=== PATIENT | female | born 1965 | race Asian ===

== ENCOUNTER 2020-09-13 07:39 | Inpatient (IN) | payer OTHER, SELFPAY ==
[2020-09-13] VITALS (22 sets, daily range): BP systolic 138–175; BP diastolic 68–93; PULSE 63–90; RESP 15–32; TEMP 36.4–37; O2SAT 85–99; BMI 24.7
--- NOTE | 2020-09-13 08:25 | ED.SOB ---
HPI - SOB/Dyspnea General Chief Complaint: Shortness of Breath/Dyspnea Stated Complaint: covid + [id number]/cough Time Seen by Provider: 09/13/20 08:15 Source: patient Mode of arrival: Ambulatory Limitations: no limitations History of Present Illness HPI Narrative: The patient presents with difficulty breathing. About 10 days ago she developed myalgia and arthralgia with headaches. She has no complaints of sore throat. She has no change in smell or taste. She denies fever. COVID-19 testing was positive 10 days ago. Over last 3-4 days she has developed cough and dyspnea. The dyspnea is escalating. She is a nonsmoker. She has no history of asthma or allergies. She has no cardiac disease. She has no peripheral edema. She does take Trulicity as well as metformin for diabetes. She has also medications for GERD. Her family member with her is also positive for COVID. They are uncertain of the exact source of exposure. Despite the complaints of dyspnea, she talks in full sentences during our interview. Related Data Home Medications Medication Instructions Recorded Confirmed metformin [Glucophage XR] 1,000 mg PO BID #0 12/11/11 09/13/20 CA PANTOTHENATE/FOLIC ACID/VIT 1 tab PO Q DAY #0 05/12/12 09/13/20 (MULTIVITAMIN) esomeprazole magnesium [Nexium] 20 mg PO QDAY PRN #0 09/13/16 09/13/20 pravastatin 20 mg PO HS #0 09/13/16 09/13/20 dulaglutide [Trulicity] 0.75 mg SUBCUT WEEKLY 09/13/20 09/13/20 dulaglutide [Trulicity] See Protocol SUBCUT WEEKLY 09/13/20 09/13/20 losartan 25 mg PO DAILY 09/13/20 09/13/20 prednisone 20 mg DAILY 09/13/20 09/13/20 Allergies Allergy/AdvReac Type Severity Reaction Status Date / Time ibuprofen [IBUPROFEN] Allergy Unknown Verified 09/13/20 14:54 prednisone [PREDNISONE] Allergy Unknown HIVES Verified 09/13/20 14:54 Review of Systems Constitutional Constitutional: Reports chills, Denies fever(s), Denies headache(s), Reports lethargy, Reports malaise and Denies weakness Comments: Generalized myalgia and arthralgia. Eyes Eyes: Denies change in vision ENT Ears, Nose, Mouth, and Throat: Denies change in voice, Denies dizziness, Denies headache(s), Denies neck pain and Denies sore throat Cardiovascular Cardiovascular: Denies chest pain Respiratory Respiratory: Denies chest congestion and Denies cough Gastrointestinal Gastrointestinal: Denies abdominal pain, Denies diarrhea, Denies nausea and Denies vomiting Genitourinary Genitourinary: Denies dysuria Genitourinary: Denies dysuria Musculoskeletal Musculoskeletal: Denies neck pain Comments: Generalized myalgia and arthralgia Integumentary/Breasts Skin/Breast: Denies pruritus, Denies erythema, Denies rash and Denies wounds Neurologic Neurologic: Denies confusion, Denies dizziness, Denies headache(s) and Denies weakness Psychiatric Psychiatric: Denies anxiety and Denies confusion Patient History Medical History (Updated 09/13/20 @ 18:50 by Bharat Pate MD) Chronic GERD Hyperlipidemia Hypertension Type 2 diabetes mellitus Surgical History (Updated 09/13/20 @ 17:43 by Viviana Best DO) History of hysterectomy No significant past surgical history Family History (Updated 09/13/20 @ 17:44 by Viviana Best DO) Mother Peptic ulcer Father Brain tumor Social History household members: spouse Smoking Status: Never smoker alcohol intake: never Smoking Status: Never smoker alcohol intake frequency: 0-2 drinks per day Substance Use Type: does not use Exam Initial Vital Signs Initial Vital Signs: Vital Signs Temperature 98.6 F 09/13/20 07:48 Pulse Rate 73 09/13/20 07:48 Respiratory Rate 18 09/13/20 07:48 Blood Pressure 169/87 H 09/13/20 07:48 Pulse Oximetry 91 09/13/20 07:48 Const General: cooperative and well developed Nutritional Appearance: well nourished HENMT Head: normocephalic and atraumatic Ears: TM's normal bilaterally Mouth: oral mucosae normal Eyes General: appearance normal, both eyes and all related structures Eyelids: eyelids normal Conjunctivae: conjunctivae normal Sclera: sclerae normal Pupils: PERRL EOM: EOM intact bilaterally Neck Neck: No lymphadenopathy and No JVD Resp Effort & Inspection: normal respiratory effort and able to speak in complete sentences Auscultation: rales bilaterally and wheezes lower bilaterally Cardio Rate: regular rate Rhythm: regular rhythm Heart Sounds: S1 normal, S2 normal, no click, no gallops, no murmurs and no rubs Pulses: normal peripheral pulses GI Inspection: non-distended Palpation: soft, no hepatosplenomegaly, No guarding, No pulsatile mass and No tender Auscultation: normal bowel sounds Back/Spine/Pelvis Back: No CVA tenderness Cervical Spine: No cervical ROM normal Thoracic/Lumbar Spine: thoracic and lumbar spine normal to inspection Skin General: no rashes or lesions noted, No jaundice and No petechiae Neuro General: patient alert, patient oriented x3, gait normal and no focal motor deficits Speech: speech normal Extrem General: normal to inspection, full ROM, no pedal edema and no calf tenderness Psych Mental Status: mental status grossly normal Course Course Course Narrative: The patient arrived with known COVID. She has tachypnea at rates greater than 30, O2 sats about 90% on room air. Back exam she has bilateral pneumonia, this was confirmed by chest x-ray. Amongst her lab values, she had elevated D-dimer. CT chest revealed bilateral infiltrates once again, there is no evidence of PE. She is given albuterol for the wheezes, difficulty breathing. Antivirals and Decadron were initiated for COVID-19. The situation was discussed with the hospitalist, Dr. Haskins. The patient is admitted for ongoing care. Orders Ordered: ED Orders 09/13/20 10:07 CT angio chest PE protocol Stat 09/13/20 10:09 Arterial Blood Gas Stat 09/13/20 10:33 Blood Culture Stat 09/13/20 12:40 Respiratory Panel (Film Array) Stat Acetaminophen (Acetaminophen 325 Mg Tablet) 650 mg PO Q6HR PRN PRN Reason: Fever/Mild Pain (1-3) Al Hydrox/Mg Hydrox/Simethicone (Mag Hydrox/Alum/Simeth 30 Ml Udc) 30 ml PO Q6HR PRN PRN Reason: Dyspepsia Albuterol (Albuterol Hfa Mdi 60 Puff/8 Gm Inhaler) 2 puff INH RTQ2HR PRN PRN Reason: Shortness Of Breath Or Wheezing Albuterol (Albuterol Hfa Mdi 60 Puff/8 Gm Inhaler) 2 puff INH [id number] JOYCELYN Benzonatate (Benzonatate 100 Mg Capsule) 100 mg PO TID PRN PRN Reason: Cough Bisacodyl (Bisacodyl 10 Mg Supp) 10 mg WV DAILY PRN PRN Reason: Constipation Calcium Carbonate (Calcium Carbonate 500 Mg Tab) 1,000 mg PO Q4HR PRN PRN Reason: Dyspepsia Dextrose (Dextrose 50 % In Water 25 Gm/50 Ml Syringe) 25 gm IV PRN PRN; Protocol PRN Reason: Hypoglycemia Guaifenesin/Codeine Phosphate (Codeine/Guaifenesin Liquid 5ml Udc) 5 ml PO Q6H PRN PRN Reason: Cough Heparin Sodium (Porcine) (Heparin 5,000 Unit/Ml Vial) 5,000 unit SUBCUT BID [facility] Insulin Aspart (Insulin Aspart 100 Unit/Ml Insuln Pen) 0 unit SUBCUT ACHS [facility]; Protocol Last Admin: 09/13/20 17:09 Dose: 3 unit Documented by: ANSON Cosigned by: SAM Losartan Potassium (Losartan 25 Mg Tablet) 25 mg PO DAILY [facility] Magnesium Hydroxide (Magnesium Hydroxide 30 Ml Udc) 30 ml PO DAILY PRN PRN Reason: Constipation Naloxone HCl (Naloxone 0.4 Mg/Ml Vial) 0.2 mg IV Q2MIN PRN PRN Reason: Opiate Reversal Ondansetron HCl (Ondansetron 4 Mg/2 Ml Inj) 4 mg IV Q8HR PRN PRN Reason: Nausea And Vomiting Pantoprazole Sodium (Pantoprazole 20 Mg Tablet) 20 mg PO 0600 [facility] Pravastatin Sodium (Pravastatin 20 Mg Tablet) 20 mg PO BEDTIME [facility] Promethazine HCl (Promethazine 12.5 Mg Supp) 12.5 mg WV Q6HR PRN PRN Reason: Nausea And Vomiting Discontinued Medications Albuterol (Albuterol Hfa Mdi 60 Puff/8 Gm Inhaler) 4 puff INH NOW ONE Stop: 09/13/20 11:29 Last Admin: 09/13/20 12:04 Dose: Not Given Documented by: FAVIO Albuterol (Albuterol Hfa 200 Puff/18 Gm Inh (Covid Pos/Vent Pts)) 4 puff INH NOW ONE Stop: 09/13/20 12:01 Last Admin: 09/13/20 12:03 Dose: 4 puff Documented by: FAVIO Dexamethasone (Dexamethasone 4 Mg/Ml Vial) 6 mg IV NOW ONE Stop: 09/13/20 12:07 Last Admin: 09/13/20 12:18 Dose: 6 mg Documented by: JUMANA Sodium Chloride (Normal Saline 0.9%) 1,000 mls @ 1,000 mls/hr IV BOLUS ONE Stop: 09/13/20 11:05 Last Infusion: 09/13/20 11:39 Dose: 0 mls/hr Documented by: Admin: 09/13/20 10:18 Dose: 1,000 mls/hr Documented by: JUMANA Remdesivir 200 mg/ Sodium (Chloride) 250 mls @ 250 mls/hr IV NOW ONE Stop: 09/13/20 12:07 Last Infusion: 09/13/20 14:59 Dose: 0 mls/hr Documented by: Infusion: 09/13/20 13:15 Dose: 250 mls/hr Documented by: Infusion: 09/13/20 13:05 Dose: 0 mls/hr Documented by: Admin: 09/13/20 12:39 Dose: 250 mls/hr Documented by: JUMANA Influenza Virus Vaccine (Influenza Vaccine 0.5 Ml Syringe) 0.5 ml IM .ONCE ONE Stop: 09/13/20 14:54 Last Admin: 09/13/20 16:27 Dose: Not Given Documented by: ANSON Vital Signs Vital signs: Vital Signs - 8 hr 09/13/20 10:56 09/13/20 11:00 09/13/20 11:30 Pulse Rate 75 72 68 Respiratory Rate 27 H 30 H 32 H Blood Pressure 147/76 H 148/82 H 153/80 H Pulse Oximetry 90 L 93 97 09/13/20 12:00 09/13/20 12:14 Pulse Rate 63 75 Respiratory Rate 25 H Blood Pressure 159/78 H Pulse Oximetry 99 97 MDM - SOB/Dyspnea Lab Data Result diagrams: 09/13/20 09:20 09/13/20 09:20 Labs: Lab Results 09/13/20 09/13/20 09/13/20 Range/Units 09:15 09:20 09:20 WBC 5.0 (4.5-11.0) X10^3/uL RBC 4.07 (4.0-5.2) X10^6/uL Hgb 12.8 (12.0-16.0) g/dL Hct 38.1 (36-46) % MCV 93.7 (80-100) fL MCH 31.5 (26-34) PG MCHC 33.6 (30-36) % RDW 12.2 (11.6-14.8) % Plt Count 229 (150-400) X10^3/uL Neut % (Auto) 74.3 (50-75) % Lymph % (Auto) 18.0 L (25-40) % [place] % (Auto) 7.6 (3-14) % Eos % (Auto) 0.0 L (2-4) % Baso % (Auto) 0.1 (0-2) % Neut # (Auto) 3700 (5558-1896) /uL Lymph # (Auto) 900 L (5582-0976) /uL [place] # (Auto) 400 (0-900) /uL Eos # (Auto) 0 (0-450) /uL Baso # (Auto) 0 (0-100) /uL PT 12.3 (10.1-12.7) SECONDS INR 1.1 (0.9-1.3) D-Dimer 415 H (<230) ng/mL ABG pH (7.35-7.45) ABG pCO2 (35-45) mmHg ABG pO2 (80-100) mmHg ABG HCO3 (22-26) mmol/L ABG Total CO2 (21-31) mmol/L ABG O2 Saturation (95-100) % ABG Base Excess (-2-2) mmol/L FiO2 Sodium (137-145) mmol/L Potassium (3.4-5.1) mmol/L Chloride (98-107) mmol/L Carbon Dioxide (22-32) mmol/L BUN (7-17) mg/dL Creatinine (0.52-1.04) mg/dL Estimated GFR (>60) mL/min BUN/Creatinine Ratio (6-22) Glucose (70-100) mg/dL Lactate (0.7-2.1) mmol/L Calcium (8.4-10.2) mg/dL Magnesium (1.6-2.3) mg/dL Total Bilirubin (0.2-1.3) mg/dL AST (14-36) IU/L ALT (<35) IU/L Alkaline Phosphatase (38-126) U/L Lactate Dehydrogenase (313-618) U/L Total Creatine Kinase (30-135) U/L CK-MB (CK-2) CK-MB (CK-2) Rel Index Troponin I (0.01-0.034) ng/mL C-Reactive Protein (<1.0) mg/dL Total Protein (6.3-8.2) g/dL Albumin (3.5-5.0) g/dL Globulin (1.7-4.1) g/dL Albumin/Globulin Ratio (1.0-2.8) Procalcitonin (<0.5) ng/mL COVID-19 PCR Positive H (Negative) 09/13/20 09/13/20 09/13/20 Range/Units 09:20 09:20 09:20 WBC (4.5-11.0) X10^3/uL RBC (4.0-5.2) X10^6/uL Hgb (12.0-16.0) g/dL Hct (36-46) % MCV (80-100) fL MCH (26-34) PG MCHC (30-36) % RDW (11.6-14.8) % Plt Count (150-400) X10^3/uL Neut % (Auto) (50-75) % Lymph % (Auto) (25-40) % [place] % (Auto) (3-14) % Eos % (Auto) (2-4) % Baso % (Auto) (0-2) % Neut # (Auto) (9264-2214) /uL Lymph # (Auto) (8549-6474) /uL [place] # (Auto) (0-900) /uL Eos # (Auto) (0-450) /uL Baso # (Auto) (0-100) /uL PT (10.1-12.7) SECONDS INR (0.9-1.3) D-Dimer (<230) ng/mL ABG pH (7.35-7.45) ABG pCO2 (35-45) mmHg ABG pO2 (80-100) mmHg ABG HCO3 (22-26) mmol/L ABG Total CO2 (21-31) mmol/L ABG O2 Saturation (95-100) % ABG Base Excess (-2-2) mmol/L FiO2 Sodium (137-145) mmol/L Potassium (3.4-5.1) mmol/L Chloride (98-107) mmol/L Carbon Dioxide (22-32) mmol/L BUN (7-17) mg/dL Creatinine (0.52-1.04) mg/dL Estimated GFR (>60) mL/min BUN/Creatinine Ratio (6-22) Glucose (70-100) mg/dL Lactate 2.2 H (0.7-2.1) mmol/L Calcium (8.4-10.2) mg/dL Magnesium 2.0 (1.6-2.3) mg/dL Total Bilirubin (0.2-1.3) mg/dL AST (14-36) IU/L ALT (<35) IU/L Alkaline Phosphatase (38-126) U/L Lactate Dehydrogenase (313-618) U/L Total Creatine Kinase 48 (30-135) U/L CK-MB (CK-2) TNP CK-MB (CK-2) Rel Index TNP Troponin I < 0.012 (0.01-0.034) ng/mL C-Reactive Protein 5.2 H (<1.0) mg/dL Total Protein (6.3-8.2) g/dL Albumin (3.5-5.0) g/dL Globulin (1.7-4.1) g/dL Albumin/Globulin Ratio (1.0-2.8) Procalcitonin < 0.05 (<0.5) ng/mL COVID-19 PCR (Negative) 09/13/20 09/13/20 09/13/20 Range/Units 09:20 09:28 10:09 WBC (4.5-11.0) X10^3/uL RBC (4.0-5.2) X10^6/uL Hgb (12.0-16.0) g/dL Hct (36-46) % MCV (80-100) fL MCH (26-34) PG MCHC (30-36) % RDW (11.6-14.8) % Plt Count (150-400) X10^3/uL Neut % (Auto) (50-75) % Lymph % (Auto) (25-40) % [place] % (Auto) (3-14) % Eos % (Auto) (2-4) % Baso % (Auto) (0-2) % Neut # (Auto) (8313-5093) /uL Lymph # (Auto) (7126-9815) /uL [place] # (Auto) (0-900) /uL Eos # (Auto) (0-450) /uL Baso # (Auto) (0-100) /uL PT (10.1-12.7) SECONDS INR (0.9-1.3) D-Dimer (<230) ng/mL ABG pH 7.42 (7.35-7.45) ABG pCO2 33.8 L (35-45) mmHg ABG pO2 63 L (80-100) mmHg ABG HCO3 22 (22-26) mmol/L ABG Total CO2 23 (21-31) mmol/L ABG O2 Saturation 92 L (95-100) % ABG Base Excess -2.0 (-2-2) mmol/L FiO2 21 Sodium 135 L (137-145) mmol/L Potassium 3.7 (3.4-5.1) mmol/L Chloride 101 (98-107) mmol/L Carbon Dioxide 28 (22-32) mmol/L BUN 7 (7-17) mg/dL Creatinine 0.38 L (0.52-1.04) mg/dL Estimated GFR > 60.0 (>60) mL/min BUN/Creatinine Ratio 18.4 (6-22) Glucose 200 H (70-100) mg/dL Lactate (0.7-2.1) mmol/L Calcium 9.1 (8.4-10.2) mg/dL Magnesium (1.6-2.3) mg/dL Total Bilirubin 0.7 (0.2-1.3) mg/dL AST 54 H (14-36) IU/L ALT 42 H (<35) IU/L Alkaline Phosphatase 69 (38-126) U/L Lactate Dehydrogenase 1004 H (313-618) U/L Total Creatine Kinase (30-135) U/L CK-MB (CK-2) CK-MB (CK-2) Rel Index Troponin I (0.01-0.034) ng/mL C-Reactive Protein (<1.0) mg/dL Total Protein 7.6 (6.3-8.2) g/dL Albumin 3.9 (3.5-5.0) g/dL Globulin 3.7 (1.7-4.1) g/dL Albumin/Globulin Ratio 1.1 (1.0-2.8) Procalcitonin (<0.5) ng/mL COVID-19 PCR (Negative) 09/13/20 Range/Units 11:46 WBC (4.5-11.0) X10^3/uL RBC (4.0-5.2) X10^6/uL Hgb (12.0-16.0) g/dL Hct (36-46) % MCV (80-100) fL MCH (26-34) PG MCHC (30-36) % RDW (11.6-14.8) % Plt Count (150-400) X10^3/uL Neut % (Auto) (50-75) % Lymph % (Auto) (25-40) % [place] % (Auto) (3-14) % Eos % (Auto) (2-4) % Baso % (Auto) (0-2) % Neut # (Auto) (0553-1476) /uL Lymph # (Auto) (7337-8320) /uL [place] # (Auto) (0-900) /uL Eos # (Auto) (0-450) /uL Baso # (Auto) (0-100) /uL PT (10.1-12.7) SECONDS INR (0.9-1.3) D-Dimer (<230) ng/mL ABG pH (7.35-7.45) ABG pCO2 (35-45) mmHg ABG pO2 (80-100) mmHg ABG HCO3 (22-26) mmol/L ABG Total CO2 (21-31) mmol/L ABG O2 Saturation (95-100) % ABG Base Excess (-2-2) mmol/L FiO2 Sodium (137-145) mmol/L Potassium (3.4-5.1) mmol/L Chloride (98-107) mmol/L Carbon Dioxide (22-32) mmol/L BUN (7-17) mg/dL Creatinine (0.52-1.04) mg/dL Estimated GFR (>60) mL/min BUN/Creatinine Ratio (6-22) Glucose (70-100) mg/dL Lactate 2.3 H (0.7-2.1) mmol/L Calcium (8.4-10.2) mg/dL Magnesium (1.6-2.3) mg/dL Total Bilirubin (0.2-1.3) mg/dL AST (14-36) IU/L ALT (<35) IU/L Alkaline Phosphatase (38-126) U/L Lactate Dehydrogenase (313-618) U/L Total Creatine Kinase (30-135) U/L CK-MB (CK-2) CK-MB (CK-2) Rel Index Troponin I (0.01-0.034) ng/mL C-Reactive Protein (<1.0) mg/dL Total Protein (6.3-8.2) g/dL Albumin (3.5-5.0) g/dL Globulin (1.7-4.1) g/dL Albumin/Globulin Ratio (1.0-2.8) Procalcitonin (<0.5) ng/mL COVID-19 PCR (Negative) Imaging Data Chest x-ray: Radiologist's Impression: [address] [id number] ReportSigned Patient: Lety Delvalle [facility]#: [id number]: 1965Acct:[id number]/Sex: 55 / FDate of Service: 09/13/20Loc: EDAccession Number: [id number] Procedure: XR chest 1V Ordering Provider: Bharat Pate MD PROCEDURE: XR CHEST 1V INDICATIONS: Dyspnea. Covid Positive TECHNIQUE: One view of the chest was acquired. COMPARISON: [facility], CHEST 1 VIEW, 01/06/2016, 4:04. FINDINGS: Surgical changes and devices: None. Lungs and pleura: Small patchy opacities are seen scattered in bilateral mid to lower lung diallo concerning for atypical pneumonia. No pleural effusions or pneumothorax. Mediastinum: Mediastinal contours appear normal. Heart size is normal. Bones and chest wall: No suspicious bony lesions. Overlying soft tissues appear unremarkable. IMPRESSION: Scattered bilateral mid to lower lung field airspace opacities concerning for multilobar infiltrates from atypical pneumonia. No pneumothorax. Dictated by: Wesly Dover M.D. on 09/13/2020 at 8:50 Approved by: Wesly Dover M.D. on 09/13/2020 at 8:51 CTA chest: Radiologist's Impression: 124 Bharat Pate MD Find Patient Imaging - Lety Delvalle 55 F 1965 ACTIVITY DATE EXAM STATUS AUTHOR 09/13/20 10:07 Signed StanislawWesly 09/13/20 08:31 Signed Wesly Dover [address] [id number] Scan ReportSigned Patient: Lety Delvalle [facility]#: [id number]: 1965Acct:[id number]/Sex: 55 / FDate of Service: 09/13/20Loc: EDAccession Number: [id number] Procedure: CT angio chest PE protocol Ordering Provider: Bharat Pate MD PROCEDURE: CT ANGIO CHEST PE PROTOCOL INDICATIONS: Dyspnea. Elevated D dimer. Covid positive. TECHNIQUE: After the administration of intravenous contrast, 2 mm thick sections acquired from the pulmonary apices to the posterior costophrenic angles. 3-dimensional maximum intensity projection (MIP) coronal and sagittal reformats were then acquired through the thorax. For radiation dose reduction, the following was used: automated exposure control, adjustment of mA and/or kV according to patient size. COMPARISON: None. FINDINGS: Image quality: Excellent. Pulmonary arteries: Pulmonary arteries are normal in size, and demonstrate no intraluminal filling defects to suggest central pulmonary embolism. Lungs and pleura: Hazy ground-glass opacities are seen scattered throughout bilateral lung diallo. Dependent atelectasis in posterior and lateral aspect of bilateral lower lobes also seen. No pleural effusions or pneumothorax. Central and peripheral airways are patent. Mediastinum: Heart size is normal, without pericardial effusion. No mediastinal or hilar adenopathy. Thoracic aorta is normal in caliber and enhancement. Esophagus is normal in caliber, without hiatal hernia. Bones and chest wall: No suspicious bony lesions. Ribs and thoracic spine appear intact throughout. Thyroid gland is within normal limits. No axillary or supraclavicular adenopathy. Abdomen: Visualized upper abdominal solid organs appear normal in the early arterial phase of enhancement. Significant hepatic steatosis is seen. IMPRESSION: 1. No evidence of pulmonary emboli. No thoracic aortic aneurysm or gross dissection. 2. Patchy hazy ground-glass opacities scattered in bilateral lung diallo suggestive of patchy pneumonitis versus infiltrates from atypical pneumonia. No pleural effusion or pneumothorax. 3. Dependent atelectasis also noted in periphery of bilateral lung diallo. 4. No gross mediastinal or hilar lymphadenopathy. 5. Hepatic steatosis. Dictated by: Wesly Dover M.D. on 09/13/2020 at 10:56 Approved by: Wesly Dover M.D. on 09/13/2020 at 11:02 ECG Data Attestation: I personally reviewed and interpreted this ECG as follows: (Normal sinus rhythm rate 71 beats per minute. No ectopy. Normal intervals. Possible old inferior MO with Q-waves in 3 and AVF. No acute ST elevation.) Critical Care Time Critical Care Time Critical Care Time: Yes Total Critical Care Time: 50 Attestation: Time included initial assessment the patient, review of EKG, lab in radiology data, and reviewing the case with the patient. Time included multiple clinical decisions, consultation with the admitting hospitalist. Discharge Plan Departure Patient Disposition: Admitted As Inpatient Clinical Impression: Type 2 diabetes mellitus, Pneumonia due to COVID-19 virus Admit Date/Time: 09/13/20 12:14 Admit Provider: Viviana Best
--- NOTE | 2020-09-13 08:31 | DI.RAD.S_ITS ---
PROCEDURE: XR CHEST 1V INDICATIONS: Dyspnea. Covid Positive TECHNIQUE: One view of the chest was acquired. COMPARISON: [facility], , CHEST 1 VIEW, 01/06/2016, 4:04. FINDINGS: Surgical changes and devices: None. Lungs and pleura: Small patchy opacities are seen scattered in bilateral mid to lower lung diallo concerning for atypical pneumonia. No pleural effusions or pneumothorax. Mediastinum: Mediastinal contours appear normal. Heart size is normal. Bones and chest wall: No suspicious bony lesions. Overlying soft tissues appear unremarkable. IMPRESSION: Scattered bilateral mid to lower lung field airspace opacities concerning for multilobar infiltrates from atypical pneumonia. No pneumothorax. Dictated by: Wesly Dover M.D. on 09/13/2020 at 8:50 Approved by: Wesly Dover M.D. on 09/13/2020 at 8:51
[2020-09-13 09:31] LABS: Add Manual Diff / Slide Review NO; Basophils Absolute Auto 0 /uL (0-100); Basophils Percent Auto 0.1 % (0-2); Eosinophils Absolute Auto 0 /uL (0-450); Hematocrit 38.1 % (36-46); Hemoglobin 12.8 g/dL (12.0-16.0); Lymphocytes Absolute Auto 900 /uL (1100-4500); Mean Corpuscular HGB Conc 33.6 % (30-36); Mean Corpuscular Hemoglobin 31.5 PG (26-34); Mean Corpuscular Volume 93.7 fL (80-100); Monocytes Absolute Auto 400 /uL (0-900); Monocytes Percent Auto 7.6 % (3-14); Neutrophils Absolute Auto 3700 /uL (1500-7000); Neutrophils Percent Auto 74.3 % (50-75); Platelet Count 229 X10^3/uL (150-400); Red Blood Cell Count 4.07 X10^6/uL (4.0-5.2); Red Cell Distribution Width 12.2 % (11.6-14.8)
[2020-09-13 09:39] LABS: INR 1.1 (0.9-1.3); Prothrombin Time 12.3 SECONDS (10.1-12.7)
[2020-09-13 09:42] LABS: D Dimer 415 ng/mL (<230)
[2020-09-13 09:48] LABS: Alanine Aminotransferase 42 IU/L (<35); Albumin 3.9 g/dL (3.5-5.0); Albumin Globulin Ratio 1.1 (1.0-2.8); Alkaline Phosphatase 69 U/L (38-126); Aspartate Aminotransferase 54 IU/L (14-36); BUN Creatinine Ratio 18.4 (6-22); Bilirubin Total 0.7 mg/dL (0.2-1.3); Blood Urea Nitrogen 7 mg/dL (7-17); Calcium 9.1 mg/dL (8.4-10.2); Carbon Dioxide 28 mmol/L (22-32); Chloride 101 mmol/L (98-107); Estimated Glomerular Filt Rate > 60.0 mL/min (>60); Globulin 3.7 g/dL (1.7-4.1); Glucose 200 mg/dL (70-100); HEMOLYSIS < 15 (0-50); Potassium 3.7 mmol/L (3.4-5.1); Sodium 135 mmol/L (137-145); Total Protein 7.6 g/dL (6.3-8.2)
[2020-09-13 09:49] LABS: Lactate (Lactic Acid) 2.2 mmol/L (0.7-2.1)
[2020-09-13 09:50] LABS: C-Reactive Protein Quant 5.2 mg/dL (<1.0); Creatine Kinase 48 U/L (30-135)
[2020-09-13 09:57] LABS: Troponin I < 0.012 ng/mL (0.01-0.034)
[2020-09-13 09:59] LABS: Procalcitonin < 0.05 ng/mL (<0.5)
--- NOTE | 2020-09-13 10:07 | DI.CT.S_ITS ---
PROCEDURE: CT ANGIO CHEST PE PROTOCOL INDICATIONS: Dyspnea. Elevated D dimer. Covid positive. TECHNIQUE: After the administration of intravenous contrast, 2 mm thick sections acquired from the pulmonary apices to the posterior costophrenic angles. 3-dimensional maximum intensity projection (MIP) coronal and sagittal reformats were then acquired through the thorax. For radiation dose reduction, the following was used: automated exposure control, adjustment of mA and/or kV according to patient size. COMPARISON: None. FINDINGS: Image quality: Excellent. Pulmonary arteries: Pulmonary arteries are normal in size, and demonstrate no intraluminal filling defects to suggest central pulmonary embolism. Lungs and pleura: Hazy ground-glass opacities are seen scattered throughout bilateral lung diallo. Dependent atelectasis in posterior and lateral aspect of bilateral lower lobes also seen. No pleural effusions or pneumothorax. Central and peripheral airways are patent. Mediastinum: Heart size is normal, without pericardial effusion. No mediastinal or hilar adenopathy. Thoracic aorta is normal in caliber and enhancement. Esophagus is normal in caliber, without hiatal hernia. Bones and chest wall: No suspicious bony lesions. Ribs and thoracic spine appear intact throughout. Thyroid gland is within normal limits. No axillary or supraclavicular adenopathy. Abdomen: Visualized upper abdominal solid organs appear normal in the early arterial phase of enhancement. Significant hepatic steatosis is seen. IMPRESSION: 1. No evidence of pulmonary emboli. No thoracic aortic aneurysm or gross dissection. 2. Patchy hazy ground-glass opacities scattered in bilateral lung diallo suggestive of patchy pneumonitis versus infiltrates from atypical pneumonia. No pleural effusion or pneumothorax. 3. Dependent atelectasis also noted in periphery of bilateral lung diallo. 4. No gross mediastinal or hilar lymphadenopathy. 5. Hepatic steatosis. Dictated by: Wesly Dover M.D. on 09/13/2020 at 10:56 Approved by: Wesly Dover M.D. on 09/13/2020 at 11:02
[2020-09-13] MEDS: SODIUM CHLORIDE 0.9% 1,000 ML 1000 ML IV (10:18)
[2020-09-13 10:20] LABS: Fractionated Inspired Oxygen 21; HCO3 ABG 22 mmol/L (22-26); Oxygen Saturation ABG 92 % (95-100); PCO2 ABG 33.8 mmHg (35-45); PO2 ABG 63 mmHg (80-100); TCO2 ABG 23 mmol/L (21-31); pH ABG 7.42 (7.35-7.45)
[2020-09-13 11:28] LABS: Reflexed Lactate in 2 Hours Y
[2020-09-13] MEDS: ALBUTEROL HFA 200 PUFF/18 GM INH (COVID POS/VENT PTS) INH (12:03)
[2020-09-13 12:06] LABS: Lactate 2HR (Lactic Acid Rflx) 2.3 mmol/L (0.7-2.1)
[2020-09-13] MEDS: DEXAMETHASONE 4 MG/ML VIAL 6 MG IV (12:18)
[2020-09-13 12:19] LABS: Lactate Dehydrogenase 1004 U/L (313-618)
[2020-09-13] MEDS: REMDESIVIR 200 MG in SODIUM CHLORIDE 0.9% 210 ML 250 ML IV (12:39)
[2020-09-13 13:55] LABS: Adenovirus Not Detected (Not Detect); Bordetella pertussis Not Detected (Not Detect); Chlamydophila pneumoniae Not Detected (Not Detect); Coronavirus 229E Not Detected (Not Detect); Coronavirus HKU1 Not Detected (Not Detect); Coronavirus NL 63 Not Detected (Not Detect); Coronavirus OC43 Not Detected (Not Detect); Human Metapneumovirus Not Detected (Not Detect); Human Rhinovirus/Enterovirus Not Detected (Not Detect); Influenza A Not Detected (Not Detect); Influenza B Not Detected (Not Detect); Mycoplasma pneumoniae Not Detected (Not Detect); Parainfluenza Virus 1 Not Detected (Not Detect); Parainfluenza Virus 2 Not Detected (Not Detect); Parainfluenza Virus 3 Not Detected (Not Detect); Parainfluenza Virus 4 Not Detected (Not Detect); Respiratory Syncytial Virus Not Detected (Not Detect)
[2020-09-13 14:04] LABS: SARS- CoV-2 Detected (Not Detecte)
[2020-09-13 15:01] LABS: Hemoglobin A1C% w Est Avg Glu 9.3 % (4.0-6.0)
[2020-09-13 15:20] LABS: Lactate (Lactic Acid) 1.5 mmol/L (0.7-2.1)
--- NOTE | 2020-09-13 15:31 | PC.NURSE ---
Rec'd pt to room 220 ~1315 from ED on 2L NC. Pt is AO x3, but unsure of home medication doses. to call when able to update med rec. Remdesivir infusing. Tele placed. Pt walked to BR with steady gait but unable to void. Oriented to room, environment, plan of care, fall risk, call light. Instructed pt to call for any needs. Reviewed assessment findings with Dr. Best.
[2020-09-13 15:34] LABS: TSH w/ Reflex to FT4 0.97 uIU/mL (0.47-4.68)
--- NOTE | 2020-09-13 17:02 | PM.HP.1 ---
History of Present Illness History of Present Illness Date Patient Seen: 09/13/20 Chief complaint: covid + [id number]/[id number] Narrative: Lety Delvalle is a 55-year-old [place] female with a past medical history significant for hypertension, hyperlipidemia, diabetes mellitus type 2, non-insulin, GERD, and overactive bladder who presented to the ED with known COVID-19 x 10 days with worsening shortness of breath. The patient reports that she was diagnosed with COVID-19 viral pneumonia 10 days ago. Her initial symptoms started with myalgias. She reports she has never had fevers or chills. She then developed a dry nonproductive cough and shortness of breath after several days. She continues to have cough which is dry and nonproductive. She has had mild loose stool for approximately 4 days. She denies headache, sore throat, chest pain, abdominal pain, nausea, vomiting, dysuria or constipation. She reports severe dry nonproductive cough and increased work of breathing and shortness of breath over the last several days prompting her to go to the emergency department. She is known COVID positive. Chest x-ray demonstrated bilateral pulmonary opacities consistent with COVID-19 viral pneumonia. She was started on oxygen in the ER for tachypnea and increased work of breathing with respiratory rate 30 but her tachypnea has since resolved and she is maintaining oxygen saturations in the mid 90s off of oxygen. ABG x2 did not demonstrate hypoxemia on room air. Received remdesivir 200 mg IV and dexamethasone 6 mg IV x1 in ED and plan to hold off further treatment unless patient becomes truly hypoxemic. The patient is high risk of decompensation and was admitted inpatient at for COVID-19 viral pneumonia. Patient History Medical History (Updated 09/13/20 @ 18:50 by Bharat Pate MD) Chronic GERD Hyperlipidemia Hypertension Type 2 diabetes mellitus Surgical History (Updated 09/13/20 @ 17:43 by Viviana Best DO) History of hysterectomy No significant past surgical history Family & Social History Family History (Updated 09/13/20 @ 17:44 by Viviana Best DO) Mother Peptic ulcer Father Brain tumor Social History: household members spouse Safety & Behavioral: Feels Safe in Current Yes Environment Been Physically Hurt or No Threatened By a Person Suicidal Ideation Description None Suicide Plan Description No Plan Tobacco & Substance use: Smoking Status Never smoker Alcohol intake never Substance Use Type does not use The patient has been for 32 years. She has 3 children who are healthy. 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 Meds Home Medications and Allergies Home Medications Medication Instructions Recorded Confirmed Type metformin [Glucophage XR] 1,000 mg PO BID #0 12/11/11 09/13/20 History CA PANTOTHENATE/FOLIC ACID/VIT 1 tab PO Q DAY #0 05/12/12 09/13/20 History (MULTIVITAMIN) esomeprazole magnesium [Nexium] 20 mg PO QDAY PRN #0 09/13/16 09/13/20 History pravastatin 20 mg PO HS #0 09/13/16 09/13/20 History dulaglutide [Trulicity] 0.75 mg SUBCUT WEEKLY 09/13/20 09/13/20 History dulaglutide [Trulicity] See Protocol SUBCUT WEEKLY 09/13/20 09/13/20 History losartan 25 mg PO DAILY 09/13/20 09/13/20 History prednisone 20 mg DAILY 09/13/20 09/13/20 History Allergies Allergy/AdvReac Type Severity Reaction Status Date / Time ibuprofen [IBUPROFEN] Allergy Unknown Verified 09/13/20 14:54 prednisone [PREDNISONE] Allergy Unknown HIVES Verified 09/13/20 14:54 Review of Systems Review of Systems Narrative: A 10 system comprehensive review of systems was conducted with the patient and found to be negative except as above in the History of Present Illness. Exam Vital Signs (past 8 hours): - 09/13/20 09:32 09/13/20 10:00 09/13/20 10:30 Temperature Pulse Rate 74 72 72 Respiratory Rate 18 28 H 28 H Blood Pressure 148/68 H 141/80 H 156/88 H Pulse Oximetry 97 95 96 09/13/20 10:56 09/13/20 11:00 09/13/20 11:30 Temperature Pulse Rate 75 72 68 Respiratory Rate 27 H 30 H 32 H Blood Pressure 147/76 H 148/82 H 153/80 H Pulse Oximetry 90 L 93 97 09/13/20 12:00 09/13/20 12:14 09/13/20 12:30 Temperature Pulse Rate 63 75 84 Respiratory Rate 25 H 27 H Blood Pressure 159/78 H 165/85 H Pulse Oximetry 99 97 95 09/13/20 12:49 09/13/20 13:00 09/13/20 13:15 Temperature 97.8 F Pulse Rate 90 77 78 Respiratory Rate 29 H 25 H 20 Blood Pressure 175/81 H 145/84 H Pulse Oximetry 85 L 97 96 09/13/20 14:11 09/13/20 16:54 Temperature 97.8 F 97.7 F Pulse Rate 78 72 Respiratory Rate 20 20 Blood Pressure 145/84 H 140/85 Pulse Oximetry 96 97 Oxygen Delivery Method Nasal Cannula Oxygen Flow Rate 1 Narrative Exam Narrative: General: Middle-aged female lying in bed and in no acute distress, appears acutely ill, well-developed, well-nourished, appropriately interactive. HEENT: Normocephalic, atraumatic. External ears without defect. Pupils equal, round, and reactive to light. Anicteric sclerae, moist conjunctivae, and no lid lag. Oropharynx free of erythema and cobble stoning with moist mucosa. Neck: Supple with full range of motion. No jugular venous distension. No lymphadenopathy or thyromegaly. Cardiovascular: Regular rhythm and rate without murmurs, rubs, or gallops appreciated. Pulmonary: Diminished throughout but clear to auscultation bilaterally without crackles, wheezes, or rhonchi. Normal respiratory effort with no use of accessory muscles. Abdomen: Soft, bowel sounds present, nontender, nondistended. No hepatosplenomegaly or masses appreciated. Extremities: No clubbing, cyanosis, or edema. Skin: Normal temperature, turgor, and texture; no rash, ulcers, or subcutaneous nodules appreciated. Neurological: Cranial nerves grossly intact. Psychiatric: Normal mood and affect. Alert and oriented to person, place, and time. Objective Labs Result Diagrams: 09/14/20 04:54 09/14/20 04:54 Labs: Laboratory Results - last 24 hr 09/13/20 09/13/20 09/13/20 09:15 09:20 09:20 WBC 5.0 RBC 4.07 Hgb 12.8 Hct 38.1 MCV 93.7 MCH 31.5 MCHC 33.6 RDW 12.2 Plt Count 229 Neut % (Auto) 74.3 Lymph % (Auto) 18.0 L [place] % (Auto) 7.6 Eos % (Auto) 0.0 L Baso % (Auto) 0.1 Neut # (Auto) 3700 Lymph # (Auto) 900 L [place] # (Auto) 400 Eos # (Auto) 0 Baso # (Auto) 0 PT 12.3 INR 1.1 D-Dimer 415 H ABG pH ABG pCO2 ABG pO2 ABG HCO3 ABG Total CO2 ABG O2 Saturation ABG Base Excess FiO2 Sodium Potassium Chloride Carbon Dioxide BUN Creatinine Estimated GFR BUN/Creatinine Ratio Glucose Hemoglobin A1c Lactate Calcium Magnesium Total Bilirubin AST ALT Alkaline Phosphatase Lactate Dehydrogenase Total Creatine Kinase CK-MB (CK-2) CK-MB (CK-2) Rel Index Troponin I C-Reactive Protein Total Protein Albumin Globulin Albumin/Globulin Ratio Procalcitonin TSH Chlamy pneumoniae PCR Adenovirus (PCR) B.parapertussis DNA PCR Coronavirus OC43 (PCR) Coronavirus HKU1 (PCR) Coronavirus 229E (PCR) COVID-19 PCR Positive H Coronavirus NL63 (PCR) Human Metapneumovir PCR Influenza Type A (PCR) Influenza Type B (PCR) M. pneumoniae (PCR) Parainfluenza 1 (PCR) Parainfluenza 2 (PCR) Parainfluenza 3 (PCR) Parainfluenza 4 (PCR) RSV (PCR) Entero/Rhino (PCR) 09/13/20 09/13/20 09/13/20 09:20 09:20 09:20 WBC RBC Hgb Hct MCV MCH MCHC RDW Plt Count Neut % (Auto) Lymph % (Auto) [place] % (Auto) Eos % (Auto) Baso % (Auto) Neut # (Auto) Lymph # (Auto) [place] # (Auto) Eos # (Auto) Baso # (Auto) PT INR D-Dimer ABG pH ABG pCO2 ABG pO2 ABG HCO3 ABG Total CO2 ABG O2 Saturation ABG Base Excess FiO2 Sodium Potassium Chloride Carbon Dioxide BUN Creatinine Estimated GFR BUN/Creatinine Ratio Glucose Hemoglobin A1c Lactate 2.2 H Calcium Magnesium 2.0 Total Bilirubin AST ALT Alkaline Phosphatase Lactate Dehydrogenase Total Creatine Kinase 48 CK-MB (CK-2) TNP CK-MB (CK-2) Rel Index TNP Troponin I < 0.012 C-Reactive Protein 5.2 H Total Protein Albumin Globulin Albumin/Globulin Ratio Procalcitonin < 0.05 TSH Chlamy pneumoniae PCR Adenovirus (PCR) B.parapertussis DNA PCR Coronavirus OC43 (PCR) Coronavirus HKU1 (PCR) Coronavirus 229E (PCR) COVID-19 PCR Coronavirus NL63 (PCR) Human Metapneumovir PCR Influenza Type A (PCR) Influenza Type B (PCR) M. pneumoniae (PCR) Parainfluenza 1 (PCR) Parainfluenza 2 (PCR) Parainfluenza 3 (PCR) Parainfluenza 4 (PCR) RSV (PCR) Entero/Rhino (PCR) 09/13/20 09/13/20 09/13/20 09:20 09:28 10:09 WBC RBC Hgb Hct MCV MCH MCHC RDW Plt Count Neut % (Auto) Lymph % (Auto) [place] % (Auto) Eos % (Auto) Baso % (Auto) Neut # (Auto) Lymph # (Auto) [place] # (Auto) Eos # (Auto) Baso # (Auto) PT INR D-Dimer ABG pH 7.42 ABG pCO2 33.8 L ABG pO2 63 L ABG HCO3 22 ABG Total CO2 23 ABG O2 Saturation 92 L ABG Base Excess -2.0 FiO2 21 Sodium 135 L Potassium 3.7 Chloride 101 Carbon Dioxide 28 BUN 7 Creatinine 0.38 L Estimated GFR > 60.0 BUN/Creatinine Ratio 18.4 Glucose 200 H Hemoglobin A1c Lactate Calcium 9.1 Magnesium Total Bilirubin 0.7 AST 54 H ALT 42 H Alkaline Phosphatase 69 Lactate Dehydrogenase 1004 H Total Creatine Kinase CK-MB (CK-2) CK-MB (CK-2) Rel Index Troponin I C-Reactive Protein Total Protein 7.6 Albumin 3.9 Globulin 3.7 Albumin/Globulin Ratio 1.1 Procalcitonin TSH Chlamy pneumoniae PCR Adenovirus (PCR) B.parapertussis DNA PCR Coronavirus OC43 (PCR) Coronavirus HKU1 (PCR) Coronavirus 229E (PCR) COVID-19 PCR Coronavirus NL63 (PCR) Human Metapneumovir PCR Influenza Type A (PCR) Influenza Type B (PCR) M. pneumoniae (PCR) Parainfluenza 1 (PCR) Parainfluenza 2 (PCR) Parainfluenza 3 (PCR) Parainfluenza 4 (PCR) RSV (PCR) Entero/Rhino (PCR) 09/13/20 09/13/20 09/13/20 11:46 12:20 12:20 WBC RBC Hgb Hct MCV MCH MCHC RDW Plt Count Neut % (Auto) Lymph % (Auto) [place] % (Auto) Eos % (Auto) Baso % (Auto) Neut # (Auto) Lymph # (Auto) [place] # (Auto) Eos # (Auto) Baso # (Auto) PT INR D-Dimer ABG pH ABG pCO2 ABG pO2 ABG HCO3 ABG Total CO2 ABG O2 Saturation ABG Base Excess FiO2 Sodium Potassium Chloride Carbon Dioxide BUN Creatinine Estimated GFR BUN/Creatinine Ratio Glucose Hemoglobin A1c 9.3 H Lactate 2.3 H Calcium Magnesium Total Bilirubin AST ALT Alkaline Phosphatase Lactate Dehydrogenase Total Creatine Kinase CK-MB (CK-2) CK-MB (CK-2) Rel Index Troponin I C-Reactive Protein Total Protein Albumin Globulin Albumin/Globulin Ratio Procalcitonin TSH 0.97 Chlamy pneumoniae PCR Adenovirus (PCR) B.parapertussis DNA PCR Coronavirus OC43 (PCR) Coronavirus HKU1 (PCR) Coronavirus 229E (PCR) COVID-19 PCR Coronavirus NL63 (PCR) Human Metapneumovir PCR Influenza Type A (PCR) Influenza Type B (PCR) M. pneumoniae (PCR) Parainfluenza 1 (PCR) Parainfluenza 2 (PCR) Parainfluenza 3 (PCR) Parainfluenza 4 (PCR) RSV (PCR) Entero/Rhino (PCR) 09/13/20 09/13/20 12:40 14:50 WBC RBC Hgb Hct MCV MCH MCHC RDW Plt Count Neut % (Auto) Lymph % (Auto) [place] % (Auto) Eos % (Auto) Baso % (Auto) Neut # (Auto) Lymph # (Auto) [place] # (Auto) Eos # (Auto) Baso # (Auto) PT INR D-Dimer ABG pH ABG pCO2 ABG pO2 ABG HCO3 ABG Total CO2 ABG O2 Saturation ABG Base Excess FiO2 Sodium Potassium Chloride Carbon Dioxide BUN Creatinine Estimated GFR BUN/Creatinine Ratio Glucose Hemoglobin A1c Lactate 1.5 Calcium Magnesium Total Bilirubin AST ALT Alkaline Phosphatase Lactate Dehydrogenase Total Creatine Kinase CK-MB (CK-2) CK-MB (CK-2) Rel Index Troponin I C-Reactive Protein Total Protein Albumin Globulin Albumin/Globulin Ratio Procalcitonin TSH Chlamy pneumoniae PCR Not detected Adenovirus (PCR) Not detected B.parapertussis DNA PCR Not detected Coronavirus OC43 (PCR) Not detected Coronavirus HKU1 (PCR) Not detected Coronavirus 229E (PCR) Not detected COVID-19 PCR Detected H Coronavirus NL63 (PCR) Not detected Human Metapneumovir PCR Not detected Influenza Type A (PCR) Not detected Influenza Type B (PCR) Not detected M. pneumoniae (PCR) Not detected Parainfluenza 1 (PCR) Not detected Parainfluenza 2 (PCR) Not detected Parainfluenza 3 (PCR) Not detected Parainfluenza 4 (PCR) Not detected RSV (PCR) Not detected Entero/Rhino (PCR) Not detected Assessment & Plan Assessment & Plan narrative: Lety Delvalle is a 55-year-old Serbian female with a past medical history significant for hypertension, hyperlipidemia, diabetes mellitus type 2, non-insulin, GERD, and overactive bladder who presented to the ED with known COVID-19 x 10 days with worsening shortness of breath. 1. Acute COVID-19 viral pneumonia, present on admission. Active. -Patient presented with progressive worsening shortness of breath, dry nonproductive cough, myalgias, and diarrhea. Patient is Serbian and diabetic making her higher risk of severe disease. -COVID-19 positive with start of symptoms occurred approximately 10 days prior to admission. -Initial inflammatory markers: LDH highly elevated at 1004, CRP highly elevated 5.2, D-dimer 415. -Chest x-ray demonstrated scattered bilateral mid to lower lung field airspace opacities consistent with COVID-19 viral pneumonia. -CTA chest demonstrated patchy hazy ground-glass opacities scattered in bilateral lung diallo. No PE. -Patient had tachypnea with increased work of breathing with RR 30 and desaturation to 85% on room air and was subsequently placed on 2 L nasal cannula in the ED. ABG x 2 on room air did not demonstrate hypoxemic respiratory failure and discontinued supplemental oxygen and patient remains stable with respiratory rate 16-20 with SpO2 97% on room air. May use supplemental oxygen with goal at rest PaO2 55/SpO2 88% and respiratory rate < 30. May also use supplemental oxygen to support patient during activity or with meals to avoid decompensation. Continue to monitor ABG as necessary. Received remdesivir 200 mg IV x1 and dexamethasone 6 mg IV x1 in ED. Will hold off on further therapy and use only if patient becomes truly hypoxemic. -Continue supportive treatment including: Prone positioning frequently and as often as tolerated (goal 12-16 hours in 24 hour period); bronchodilators, antipyretics, antiemetics, and antitussives as needed. -Continue isolation for droplet precautions. 2. Diabetes mellitus type 2, non-insulin using, chronic, present on admission. Stable. -Hemoglobin A1c 9.3% indicative of poor glycemic control. -Held home antihyperglycemics. -Continue ACHS blood glucose checks and low-dose correctional scale insulin. -Started Lantus 10 units daily at bedtime for better glycemic control during infection COVID-19 as above. -Continue heart healthy/carbohydrate consistent diet. -Consulted dietitian and we appreciate her time and recommendations. 3. Hypertension, chronic, present on admission. Stable. -Continue home losartan 25 mg daily. 4. Hyperlipidemia, chronic, present on admission. Stable. -Continue home pravastatin 20 mg daily at bedtime. 5. GERD, chronic, present on admission. Stable. -Continue equivalent of home PPI with Protonix 20 mg daily. Code status: Full code, surrogate decision maker is patient's spouse VTE prophylaxis: SQ heparin, SCDs Patient is admitted under inpatient status with expected length of stay greater than 2 midnights due to severity of presenting symptoms, risk of adverse event, and complexity of treatment plan. Quality VTE Deep Vein Thrombosis/Pulmonary Embolism Present on Admission: No
[2020-09-13] MEDS: INSULIN ASPART 100 UNIT/ML INSULN PEN SUBCUT ×2 (17:09→20:34)
[2020-09-13 17:25] LABS: HCO3 ABG 24 mmol/L (22-26); PCO2 ABG 29.8 mmHg (35-45); PO2 ABG 65 mmHg (80-100); pH ABG 7.51 (7.35-7.45)
[2020-09-13 17:26] LABS: Oxygen Saturation ABG 95 % (95-100); TCO2 ABG 25 mmol/L (21-31)
[2020-09-13 17:27] LABS: Fractionated Inspired Oxygen 21
--- NOTE | 2020-09-13 17:55 | RT ---
ACAPELLA given and IS instructed. Pt did well, with IS approx. 800. Instructed 10 x per hour when awake. Good cough noted and dry. No distress noted
[2020-09-13] MEDS: ALBUTEROL HFA MDI 60 PUFF/8 GM INHALER INH ×3 (19:00→22:37)
--- NOTE | 2020-09-13 19:21 | PC.NURSE ---
Patient on RA saturating between 92-95%. Lung sounds are diminished but clear throughout. Will desaturate to 88% with prolong activity but rebounds quickly into the 90s with rest. Very small, ineffective coughs noted but does not appear to be laboring to breathe or in distress. Per MD's orders, bedside commode to be used and O2 supplementation with eating and ADLs the cause prolong desaturations to support patient respiratory status. Patient educated to prone as much as tolerated, may change positions but to return to prone position as soon as possible. Patient acknowledges all teaching.
[2020-09-13 19:30] LABS: Bacteria Urine None Seen; RBC Urine None Seen (0-5/HPF)
[2020-09-13 19:32] LABS: Appearance Urine UA CLEAR; Bilirubin Urine UA NEGATIVE (NEGATIVE); Color Urine UA YELLOW; Glucose Urine UA 3+ g/dL (Negative); Ketones Urine UA NEGATIVE (NEGATIVE); Leukocyte Esterase Urine UA NEGATIVE (NEGATIVE); Nitrite Urine UA NEGATIVE (Negative); Occult Blood Urine UA NEGATIVE (Negative); Protein Urine UA NEGATIVE (Negative); Urobilinogen Urine UA 0.2 E.U./dL (0.2)
[2020-09-13 19:40] LABS: Amorphous Sediment Urine 1+; Squamous Epithelial Cell Urine 0-1 /HPF (0-5/HPF); WBC Urine 0-1/HPF (0-5/HPF)
[2020-09-13 19:41] LABS: Culture Indicated Urine Cult Not Indicated
[2020-09-13] MEDS: HEPARIN 5,000 UNIT/ML VIAL 5000 UNIT SUBCUT (20:34)
[2020-09-13] MEDS: PRAVASTATIN 20 MG TABLET PO (20:35)
[2020-09-13] MEDS: INSULIN GLARGINE 100 UNIT/ML 3ML PEN 10 UNIT SUBCUT (21:23)
[2020-09-14] VITALS (11 sets, daily range): BP systolic 131–147; BP diastolic 79–89; PULSE 64–78; RESP 12–21; TEMP 36.7–37.1; O2SAT 91–97
[2020-09-14] MEDS: PANTOPRAZOLE 20 MG TABLET PO (05:17)
[2020-09-14 05:22] LABS: Add Manual Diff / Slide Review NO; Basophils Absolute Auto 0 /uL (0-100); Basophils Percent Auto 0.1 % (0-2); Eosinophils Absolute Auto 0 /uL (0-450); Hematocrit 36.1 % (36-46); Hemoglobin 12.2 g/dL (12.0-16.0); Lymphocytes Absolute Auto 900 /uL (1100-4500); Lymphocytes Percent Auto 24.5 % (25-40); Mean Corpuscular HGB Conc 33.8 % (30-36); Mean Corpuscular Hemoglobin 31.6 PG (26-34); Mean Corpuscular Volume 93.6 fL (80-100); Monocytes Absolute Auto 500 /uL (0-900); Monocytes Percent Auto 14.6 % (3-14); Neutrophils Absolute Auto 2200 /uL (1500-7000); Neutrophils Percent Auto 60.8 % (50-75); Platelet Count 250 X10^3/uL (150-400); Red Blood Cell Count 3.86 X10^6/uL (4.0-5.2); Red Cell Distribution Width 12.4 % (11.6-14.8); White Blood Cell Count 3.5 X10^3/uL (4.5-11.0)
[2020-09-14 05:30] LABS: Alanine Aminotransferase 40 IU/L (<35); Albumin 3.6 g/dL (3.5-5.0); Alkaline Phosphatase 64 U/L (38-126); Aspartate Aminotransferase 46 IU/L (14-36); BUN Creatinine Ratio 31.6 (6-22); Bilirubin Total 0.6 mg/dL (0.2-1.3); Blood Urea Nitrogen 12 mg/dL (7-17); Calcium 9.4 mg/dL (8.4-10.2); Carbon Dioxide 28 mmol/L (22-32); Chloride 102 mmol/L (98-107); Estimated Glomerular Filt Rate > 60.0 mL/min (>60); Globulin 3.5 g/dL (1.7-4.1); Glucose 308 mg/dL (70-100); HEMOLYSIS < 15 (0-50); Magnesium 2.2 mg/dL (1.6-2.3); Potassium 3.7 mmol/L (3.4-5.1); Sodium 134 mmol/L (137-145); Total Protein 7.1 g/dL (6.3-8.2)
[2020-09-14] MEDS: ALBUTEROL HFA MDI 60 PUFF/8 GM INHALER INH ×5 (06:06→23:44)
[2020-09-14] MEDS: LOSARTAN 25 MG TABLET PO (09:22)
[2020-09-14] MEDS: HEPARIN 5,000 UNIT/ML VIAL 5000 UNIT SUBCUT ×2 (09:22→20:34)
[2020-09-14] MEDS: INSULIN ASPART 100 UNIT/ML INSULN PEN SUBCUT ×4 (09:23→20:34)
--- NOTE | 2020-09-14 10:44 | DIET.PN ---
Dietary Progress Note Assessment: 55y F c hx of DM2, HTN, HLD admitted c Covid 19 pneumonia referred to nutrition for uncontrolled DM2. Phoned pt in room to discuss importance of following 30g CHO limit at meals and limiting CHO intake between meals to better manage DM2 and respiratory fxn. Educated pt on finding CHO amounts on menu for self ordering. Pt reports regularly checking BGs and states her last check at home was 140. Educated pt on ONS Ensure Max which will be sent daily c lunch to support protein needs in a low CHO, low sugar formula. Expressed importance of continued strict BG control upon d/c. HT: 157.4cm WT: 62kg BMI: 25.0 Labs: A1c 9.3 H Maxwell: 23 Nutrition Diagnosis: altered nutrition related laboratory values r/t endocrine dysfunction and probable undesirable food choices aeb pt admit BG 200, A1c 9.3 c established DM2, pt reports regularly checking BG but not knowing how to order low CHO using hospital menu. Diet Order: CCD2 Monitoring/Evaluations: POs, ONS tolerance
[2020-09-14] MEDS: SODIUM CHLORIDE 0.9% FLUSH 10 ML IV ×2 (11:34→20:34)
--- NOTE | 2020-09-14 13:10 | CM.DANOTE ---
Discharge Planning/Care Management DCP: assessment: case received, EMR reviewed: assessment process initiated via documentation review. Pt is COVID + and on specialized precautions. Pt is a 55 year old female who admitted yesterday to care of the hospitalist team. PCP: unclear at this time. Payer: [employer]. OF note: pt's spouse Osbaldo is also COVID + and recovering at home. H&P from yesterday remains in draft at this time. P: follow as POC unfolds and check in by phone with pt and her to assist with any d/c needs that may arise. Advanced directive, confirm from FAMILY Start: 09/13/20 14:53 Freq: Q24H Status: Active Protocol: Document 09/13/20 14:53 JLN (Rec: 09/13/20 14:57 JLN [id number]) Advance Directive, confirm on record Time 14:56 Person contacted pt Copy received No CM Discharge Assessment Start: 09/14/20 13:06 Freq: Status: Active Protocol: Document 09/14/20 13:09 ITV (Rec: 09/14/20 13:10 ITV [id number]) Discharge Planning Assessment Advance Directives? No History Provided By Medical Record Household Members spouse Is patient alert and oriented? Yes Review Status In Process
--- NOTE | 2020-09-14 13:14 | PM.PN.1 ---
Subjective Subjective Date Patient Seen: 09/14/20 Interval history: Lety Delvalle is a 55-year-old [place] female with a past medical history significant for hypertension, hyperlipidemia, diabetes mellitus type 2, non-insulin, GERD, and overactive bladder who presented to the ED with known COVID-19 x 10 days with worsening shortness of breath. The patient is resting in bed comfortably. She has been proning the majority of each shift with small breaks for meals and restroom. She reports she feels much better. She continues to have dry nonproductive cough which is improved. She denies headache, shortness of breath, chest pain, abdominal pain, nausea, vomiting, fever, chills, dysuria, or constipation. She is no longer having with stool. She is voiding and eliminating without difficulty. She is up ambulating independently without assistance. Exam Vital Signs (past 8 hours): - 09/14/20 06:06 09/14/20 08:23 09/14/20 10:25 Temperature 98.7 F Pulse Rate 76 65 Respiratory Rate 15 18 Blood Pressure 138/79 Pulse Oximetry 94 95 95 09/14/20 12:00 Temperature 98.3 F Pulse Rate 68 Respiratory Rate 19 Blood Pressure 141/89 H Pulse Oximetry 94 Oxygen Delivery Method Room Air Oxygen Flow Rate 0 Narrative Exam Narrative: General: Middle-aged female lying in bed and in no acute distress, appears acutely ill, well-developed, well-nourished, appropriately interactive. HEENT: Normocephalic, atraumatic. External ears without defect. Pupils equal, round, and reactive to light. Anicteric sclerae, moist conjunctivae, and no lid lag. Oropharynx free of erythema and cobble stoning with moist mucosa. Neck: Supple with full range of motion. No jugular venous distension. No lymphadenopathy or thyromegaly. Cardiovascular: Regular rhythm and rate without murmurs, rubs, or gallops appreciated. Pulmonary: Diminished throughout but air movement with scattered crackle otherwise clear. No wheezes or rhonchi. Normal respiratory effort with no use of accessory muscles. Abdomen: Soft, bowel sounds present, nontender, nondistended. No hepatosplenomegaly or masses appreciated. Extremities: No clubbing, cyanosis, or edema. Skin: Normal temperature, turgor, and texture; no rash, ulcers, or subcutaneous nodules appreciated. Neurological: Cranial nerves grossly intact. Psychiatric: Normal mood and affect. Alert and oriented to person, place, and time. Objective Labs Result Diagrams: 09/14/20 04:54 09/14/20 04:54 Labs: Laboratory Results - last 24 hr 09/13/20 09/13/20 09/13/20 09:15 12:20 12:20 WBC RBC Hgb Hct MCV MCH MCHC RDW Plt Count Neut % (Auto) Lymph % (Auto) [place] % (Auto) Eos % (Auto) Baso % (Auto) Neut # (Auto) Lymph # (Auto) [place] # (Auto) Eos # (Auto) Baso # (Auto) ABG pH ABG pCO2 ABG pO2 ABG HCO3 ABG Total CO2 ABG O2 Saturation ABG Base Excess FiO2 Sodium Potassium Chloride Carbon Dioxide BUN Creatinine Estimated GFR BUN/Creatinine Ratio Glucose Hemoglobin A1c 9.3 H Lactate Calcium Magnesium Total Bilirubin AST ALT Alkaline Phosphatase Total Protein Albumin Globulin Albumin/Globulin Ratio TSH 0.97 Urine Color Urine Appearance Urine pH Ur Specific [place] Urine Protein Urine Glucose (UA) Urine Ketones Urine Occult Blood Urine Nitrate Urine Bilirubin Urine Urobilinogen Ur Leukocyte Esterase Urine RBC Urine WBC Ur Squamous Epith Cells Amorphous Sediment Urine Bacteria Ur Culture Indicated? Chlamy pneumoniae PCR Adenovirus (PCR) B.parapertussis DNA PCR Coronavirus OC43 (PCR) Coronavirus HKU1 (PCR) Coronavirus 229E (PCR) COVID-19 PCR Positive H Coronavirus NL63 (PCR) Human Metapneumovir PCR Influenza Type A (PCR) Influenza Type B (PCR) M. pneumoniae (PCR) Parainfluenza 1 (PCR) Parainfluenza 2 (PCR) Parainfluenza 3 (PCR) Parainfluenza 4 (PCR) RSV (PCR) Entero/Rhino (PCR) 09/13/20 09/13/20 09/13/20 12:40 14:50 17:03 WBC RBC Hgb Hct MCV MCH MCHC RDW Plt Count Neut % (Auto) Lymph % (Auto) [place] % (Auto) Eos % (Auto) Baso % (Auto) Neut # (Auto) Lymph # (Auto) [place] # (Auto) Eos # (Auto) Baso # (Auto) ABG pH 7.51 H ABG pCO2 29.8 L ABG pO2 65 L ABG HCO3 24 ABG Total CO2 25 ABG O2 Saturation 95 ABG Base Excess 1.0 FiO2 21 Sodium Potassium Chloride Carbon Dioxide BUN Creatinine Estimated GFR BUN/Creatinine Ratio Glucose Hemoglobin A1c Lactate 1.5 Calcium Magnesium Total Bilirubin AST ALT Alkaline Phosphatase Total Protein Albumin Globulin Albumin/Globulin Ratio TSH Urine Color Urine Appearance Urine pH Ur Specific [place] Urine Protein Urine Glucose (UA) Urine Ketones Urine Occult Blood Urine Nitrate Urine Bilirubin Urine Urobilinogen Ur Leukocyte Esterase Urine RBC Urine WBC Ur Squamous Epith Cells Amorphous Sediment Urine Bacteria Ur Culture Indicated? Chlamy pneumoniae PCR Not detected Adenovirus (PCR) Not detected B.parapertussis DNA PCR Not detected Coronavirus OC43 (PCR) Not detected Coronavirus HKU1 (PCR) Not detected Coronavirus 229E (PCR) Not detected COVID-19 PCR Detected H Coronavirus NL63 (PCR) Not detected Human Metapneumovir PCR Not detected Influenza Type A (PCR) Not detected Influenza Type B (PCR) Not detected M. pneumoniae (PCR) Not detected Parainfluenza 1 (PCR) Not detected Parainfluenza 2 (PCR) Not detected Parainfluenza 3 (PCR) Not detected Parainfluenza 4 (PCR) Not detected RSV (PCR) Not detected Entero/Rhino (PCR) Not detected 09/13/20 09/14/20 09/14/20 19:12 04:54 04:54 WBC 3.5 L RBC 3.86 L Hgb 12.2 Hct 36.1 MCV 93.6 MCH 31.6 MCHC 33.8 RDW 12.4 Plt Count 250 Neut % (Auto) 60.8 Lymph % (Auto) 24.5 L [place] % (Auto) 14.6 H Eos % (Auto) 0.0 L Baso % (Auto) 0.1 Neut # (Auto) 2200 Lymph # (Auto) 900 L [place] # (Auto) 500 Eos # (Auto) 0 Baso # (Auto) 0 ABG pH ABG pCO2 ABG pO2 ABG HCO3 ABG Total CO2 ABG O2 Saturation ABG Base Excess FiO2 Sodium 134 L Potassium 3.7 Chloride 102 Carbon Dioxide 28 BUN 12 Creatinine 0.38 L Estimated GFR > 60.0 BUN/Creatinine Ratio 31.6 H Glucose 308 H D Hemoglobin A1c Lactate Calcium 9.4 Magnesium 2.2 Total Bilirubin 0.6 AST 46 H ALT 40 H Alkaline Phosphatase 64 Total Protein 7.1 Albumin 3.6 Globulin 3.5 Albumin/Globulin Ratio 1.0 TSH Urine Color Yellow Urine Appearance Clear Urine pH 7.0 Ur Specific [place] 1.010 Urine Protein Negative Urine Glucose (UA) 3+ H Urine Ketones Negative Urine Occult Blood Negative Urine Nitrate Negative Urine Bilirubin Negative Urine Urobilinogen 0.2 Ur Leukocyte Esterase Negative Urine RBC None seen Urine WBC 0-1/hpf Ur Squamous Epith Cells 0-1 /hpf Amorphous Sediment 1+ Urine Bacteria None seen Ur Culture Indicated? Cult not indicated Chlamy pneumoniae PCR Adenovirus (PCR) B.parapertussis DNA PCR Coronavirus OC43 (PCR) Coronavirus HKU1 (PCR) Coronavirus 229E (PCR) COVID-19 PCR Coronavirus NL63 (PCR) Human Metapneumovir PCR Influenza Type A (PCR) Influenza Type B (PCR) M. pneumoniae (PCR) Parainfluenza 1 (PCR) Parainfluenza 2 (PCR) Parainfluenza 3 (PCR) Parainfluenza 4 (PCR) RSV (PCR) Entero/Rhino (PCR) [facility] Medical History (Updated 09/13/20 @ 18:50 by Bharat Pate MD) Chronic GERD Hyperlipidemia Hypertension Type 2 diabetes mellitus Surgical History (Updated 09/13/20 @ 17:43 by Viviana Best DO) History of hysterectomy No significant past surgical history Family History (Updated 09/13/20 @ 17:44 by Viviana Best DO) Mother Peptic ulcer Father Brain tumor Social History household members: spouse Smoking Status: Never smoker alcohol intake: never Assessment & Plan Assessment & Plan narrative: Lety Delvalle is a 55-year-old [place] female with a past medical history significant for hypertension, hyperlipidemia, diabetes mellitus type 2, non-insulin, GERD, and overactive bladder who presented to the ED with known COVID-19 x 10 days with worsening shortness of breath. 1. Acute COVID-19 viral pneumonia, present on admission. Active. -Patient presented with progressive worsening shortness of breath, dry nonproductive cough, myalgias, and diarrhea. Patient is [place] and diabetic making her higher risk of severe disease. -COVID-19 positive with start of symptoms occurred approximately 10 days prior to admission. -Initial inflammatory markers: LDH highly elevated at 1004, CRP highly elevated 5.2, D-dimer 415. -Chest x-ray demonstrated scattered bilateral mid to lower lung field airspace opacities consistent with COVID-19 viral pneumonia. -CTA chest demonstrated patchy hazy ground-glass opacities scattered in bilateral lung diallo. No PE. -Patient had tachypnea with increased work of breathing with RR 30 and desaturation to 85% on room air and was subsequently placed on 2 L nasal cannula in the ED. ABG x 2 on room air did not demonstrate hypoxemic respiratory failure and discontinued supplemental oxygen. Patient remains stable on room air with respiratory rate 14-20 with SpO2 low to mid 90's on room air. May use supplemental oxygen with goal at rest PaO2 55/SpO2 88% and respiratory rate < 30. May also use supplemental oxygen to support patient during activity or with meals to avoid decompensation. Continue to monitor ABG as necessary. Received remdesivir 200 mg IV x1 and dexamethasone 6 mg IV x1 in ED. Will hold off on further therapy and use only if patient becomes truly hypoxemic. -Continue supportive treatment including: Prone positioning frequently and as often as tolerated (goal 12-16 hours in 24 hour period); bronchodilators, antipyretics, antiemetics, and antitussives as needed. -Continue isolation for droplet precautions. 2. Diabetes mellitus type 2, non-insulin using, chronic, present on admission. Stable. -Hemoglobin A1c 9.3% indicative of poor glycemic control. -Held home antihyperglycemics. -Continue ACHS blood glucose checks and low-dose correctional scale insulin. -Started Lantus 10 units daily at bedtime for better glycemic control during infection COVID-19 as above. -Continue heart healthy/carbohydrate consistent diet. -Consulted dietitian and we appreciate her time and recommendations. 3. Hypertension, chronic, present on admission. Stable. -Continue home losartan 25 mg daily. 4. Hyperlipidemia, chronic, present on admission. Stable. -Continue home pravastatin 20 mg daily at bedtime. 5. GERD, chronic, present on admission. Stable. -Continue equivalent of home PPI with Protonix 20 mg daily. Code status: Full code, surrogate decision maker is patient's spouse VTE prophylaxis: SQ heparin, SCDs Disposition: Patient likely to discharge home possibly tomorrow if she does not decompensate overnight. Quality VTE Deep Vein Thrombosis/Pulmonary Embolism Present on Admission: No
[2020-09-14] MEDS: INSULIN GLARGINE 100 UNIT/ML 3ML PEN 15 UNIT SUBCUT (20:34)
[2020-09-14] MEDS: PRAVASTATIN 20 MG TABLET PO (20:34)
[2020-09-14] MEDS: ACETAMINOPHEN 325 MG TABLET 650 MG PO (22:16)
[2020-09-15] VITALS: BP 151/91; PULSE 68; RESP 19; TEMP 36.6; O2SAT 93
[2020-09-15] MEDS: PANTOPRAZOLE 20 MG TABLET PO (04:42)
[2020-09-15 04:53] VITALS: BP 153/92; PULSE 62; RESP 18; TEMP 36.9; O2SAT 94
[2020-09-15 05:39] LABS: Add Manual Diff / Slide Review NO; Basophils Absolute Auto 0 /uL (0-100); Basophils Percent Auto 0.1 % (0-2); Eosinophils Absolute Auto 100 /uL (0-450); Eosinophils Percent Auto 1.2 % (2-4); Hemoglobin 12.6 g/dL (12.0-16.0); Lymphocytes Absolute Auto 1300 /uL (1100-4500); Mean Corpuscular HGB Conc 34.2 % (30-36); Mean Corpuscular Hemoglobin 31.9 PG (26-34); Mean Corpuscular Volume 93.4 fL (80-100); Monocytes Absolute Auto 500 /uL (0-900); Monocytes Percent Auto 10.9 % (3-14); Neutrophils Absolute Auto 2500 /uL (1500-7000); Neutrophils Percent Auto 57.8 % (50-75); Platelet Count 291 X10^3/uL (150-400); Red Blood Cell Count 3.96 X10^6/uL (4.0-5.2); Red Cell Distribution Width 12.3 % (11.6-14.8); White Blood Cell Count 4.3 X10^3/uL (4.5-11.0)
[2020-09-15 05:49] LABS: Alanine Aminotransferase 34 IU/L (<35); Albumin 3.5 g/dL (3.5-5.0); Alkaline Phosphatase 63 U/L (38-126); Aspartate Aminotransferase 40 IU/L (14-36); BUN Creatinine Ratio 30.2 (6-22); Bilirubin Total 0.7 mg/dL (0.2-1.3); Blood Urea Nitrogen 13 mg/dL (7-17); Calcium 8.9 mg/dL (8.4-10.2); Carbon Dioxide 33 mmol/L (22-32); Chloride 101 mmol/L (98-107); Estimated Glomerular Filt Rate > 60.0 mL/min (>60); Globulin 3.6 g/dL (1.7-4.1); Glucose 177 mg/dL (70-100); HEMOLYSIS < 15 (0-50); Potassium 3.5 mmol/L (3.4-5.1); Sodium 135 mmol/L (137-145); Total Protein 7.1 g/dL (6.3-8.2)
[2020-09-15 08:00] VITALS: BP 150/90; PULSE 60; RESP 20; TEMP 36.8; O2SAT 95
--- NOTE | 2020-09-15 08:14 | PM.DS.1 ---
History of Present Illness History of Present Illness Date Patient Seen: 09/15/20 Time Patient Seen: 08:15 Chief complaint: covid + [id number] Narrative: As per Dr. Best, Lety Delvalle is a 55-year-old [place] female with a past medical history significant for hypertension, hyperlipidemia, diabetes mellitus type 2, non-insulin, GERD, and overactive bladder who presented to the ED with known COVID-19 x 10 days with worsening shortness of breath. The patient reports that she was diagnosed with COVID-19 viral pneumonia 10 days ago. Her initial symptoms started with myalgias. She reports she has never had fevers or chills. She then developed a dry nonproductive cough and shortness of breath after several days. She continues to have cough which is dry and nonproductive. She has had mild loose stool for approximately 4 days. She denies headache, sore throat, chest pain, abdominal pain, nausea, vomiting, dysuria or constipation. She reports severe dry nonproductive cough and increased work of breathing and shortness of breath over the last several days prompting her to go to the emergency department. She is known COVID positive. Chest x-ray demonstrated bilateral pulmonary opacities consistent with COVID-19 viral pneumonia. She was started on oxygen in the ER for tachypnea and increased work of breathing with respiratory rate 30 but her tachypnea has since resolved and she is maintaining oxygen saturations in the mid 90s off of oxygen. ABG x2 did not demonstrate hypoxemia on room air. Received remdesivir 200 mg IV and dexamethasone 6 mg IV x1 in ED and plan to hold off further treatment unless patient becomes truly hypoxemic. The patient is high risk of decompensation and was admitted inpatient at for COVID-19 viral pneumonia. Discharge Providers Provider Date of admission: 09/13/20 12:14 Discharge Date: 09/15/20 Consults: 09/13/20 17:37 Consult to Respiratory Therapy Evaluate & Treat Comment: Physician Instructions: Evaluate and treat 09/13/20 18:51 Consult to Dietitian, Adult Routine Comment: Reason For Exam: COVID, Diabetes Discharge provider: Live Grier DO Summary Hospital Course Discharge Diagnosis: Please see hospital course by problem list noted below Hospital Course: Lety Delvalle is a 55-year-old [place] female with a past medical history significant for hypertension, hyperlipidemia, diabetes mellitus type 2, non-insulin, GERD, and overactive bladder who presented to the ED with known COVID-19 x 10 days with worsening shortness of breath. She was admitted with moderate COVID-19 viral pneumonia. Given her risk factors including type 2 diabetes and hypertension she was admitted for continued observation. She ultimately did not develop severe COVID-19 pneumonia, and did not require supplemental oxygen other than briefly as noted below in the emergency room. She received a single dose of Decadron and room does severe but these were not continued in her symptoms ultimately improved. 1. Acute COVID-19 viral pneumonia, present on admission. Active. -Patient presented with progressive worsening shortness of breath, dry nonproductive cough, myalgias, and diarrhea. Patient is [place] , diabetic, and has a history of HTN making her higher risk of severe disease. -COVID-19 positive with start of symptoms occurred approximately 10 days prior to admission. -Initial inflammatory markers: LDH highly elevated at 1004, CRP highly elevated 5.2, D-dimer 415. -Chest x-ray demonstrated scattered bilateral mid to lower lung field airspace opacities consistent with COVID-19 viral pneumonia. -CTA chest demonstrated patchy hazy ground-glass opacities scattered in bilateral lung diallo. No PE. -Patient had tachypnea with increased work of breathing with RR 30 and desaturation to 85% on room air and was subsequently placed on 2 L nasal cannula in the ED. ABG x 2 on room air did not demonstrate hypoxemic respiratory failure and discontinued supplemental oxygen. Patient remained stable on room air with respiratory rate 14-20 with SpO2 low to mid 90's on room air. Received remdesivir 200 mg IV x1 and dexamethasone 6 mg IV x1 in ED. Held off on further therapy given lack of hypoxemia. -Continued supportive treatment including: Prone positioning frequently and as often as tolerated (goal 12-16 hours in 24 hour period); bronchodilators, antipyretics, antiemetics, and antitussives as needed. -Continued isolation for droplet precautions. 2. Diabetes mellitus type 2, non-insulin using, chronic, present on admission. Stable. -Hemoglobin A1c 9.3% indicative of poor glycemic control. -Held home antihyperglycemics during admission and started on basal therapy with corrective bolusing. Discharge on prior medications and recommend PCP follow up. 3. Hypertension, chronic, present on admission. Stable. -Continued home losartan 25 mg daily. 4. Hyperlipidemia, chronic, present on admission. Stable. -Continued home pravastatin 20 mg daily at bedtime. 5. GERD, chronic, present on admission. Stable. -Continued equivalent of home PPI with Protonix 20 mg daily. Resume home medications on discharge. Exam Vital Signs (past 8 hours): - 09/15/20 04:53 Temperature 98.4 F Pulse Rate 62 Respiratory Rate 18 Blood Pressure 153/92 H Pulse Oximetry 94 Oxygen Delivery Method Room Air Oxygen Flow Rate 0 Narrative Exam Narrative: General: Middle-aged female sitting cross legged in bed and in no acute distress, well-developed, well-nourished, appropriately interactive. HEENT: Normocephalic, atraumatic. External ears without defect. Pupils equal, round, and reactive to light. Anicteric sclerae, moist conjunctivae, and no lid lag. Oropharynx free of erythema and cobble stoning with moist mucosa. Neck: Supple with full range of motion. No jugular venous distension. No lymphadenopathy or thyromegaly. Cardiovascular: Regular rhythm and rate without murmurs, rubs, or gallops appreciated. Pulmonary: Normal respiratory effort with no use of accessory muscles. Abdomen: Soft, nontender, nondistended. No hepatosplenomegaly or masses appreciated. Extremities: No clubbing, cyanosis, or edema. Skin: Normal temperature, turgor, and texture; no rash, ulcers, or subcutaneous nodules appreciated. Neurological: Cranial nerves grossly intact. Psychiatric: Normal mood and affect. Alert and oriented to person, place, and time. Objective Labs Result Diagrams: 09/15/20 05:05 09/15/20 05:05 Labs: Laboratory Results - last 24 hr 09/15/20 09/15/20 05:05 05:05 WBC 4.3 L RBC 3.96 L Hgb 12.6 Hct 37.0 MCV 93.4 MCH 31.9 MCHC 34.2 RDW 12.3 Plt Count 291 Neut % (Auto) 57.8 Lymph % (Auto) 30.0 [place] % (Auto) 10.9 Eos % (Auto) 1.2 L Baso % (Auto) 0.1 Neut # (Auto) 2500 Lymph # (Auto) 1300 [place] # (Auto) 500 Eos # (Auto) 100 Baso # (Auto) 0 Sodium 135 L Potassium 3.5 Chloride 101 Carbon Dioxide 33 H BUN 13 Creatinine 0.43 L Estimated GFR > 60.0 BUN/Creatinine Ratio 30.2 H Glucose 177 H D Calcium 8.9 Magnesium 2.0 Total Bilirubin 0.7 AST 40 H ALT 34 Alkaline Phosphatase 63 Total Protein 7.1 Albumin 3.5 Globulin 3.6 Albumin/Globulin Ratio 1.0 PFS Medical History (Updated 09/13/20 @ 18:50 by Bharat Pate MD) Chronic GERD Hyperlipidemia Hypertension Type 2 diabetes mellitus Surgical History (Updated 09/13/20 @ 17:43 by Viviana Best DO) History of hysterectomy No significant past surgical history Family History (Updated 09/13/20 @ 17:44 by Viviana Best DO) Mother Peptic ulcer Father Brain tumor Social History household members: spouse Smoking Status: Never smoker alcohol intake: never Discharge Plan Discharge Plan Patient Disposition: Home Provider Discharge Comment: You were admitted to the hospital with moderate COVID 19. You did not require supplemental oxygen and you were given one dose of remdesevir. If your symptoms worsen do not hesitate to come back. Pasted below are the recommendations from the CDC regarding discontinuation of home quarantine. Please schedule a telehealth visit with your PCP if they offer it and let them know you had COVID 19 to check on your symptoms sometime next week. CDC recommendations for discontinuation of isolation: At least 10 days have passed since symptoms first appeared and At least 24 hours have passed since last fever without the use of fever-reducing medications and Symptoms (e.g., cough, shortness of breath) have improved Discharge orders & Medications Prescriptions: Continued metformin [Glucophage XR] 500 MG tablet extended release 24 hr 1,000 mg PO BID Qty: 0 RF: 0 CA PANTOTHENATE/FOLIC ACID/VIT (MULTIVITAMIN) 1 tab PO Q DAY Qty: 0 RF: 0 esomeprazole magnesium [Nexium] 40 MG capsule,delayed release(DR/EC) 20 mg PO QDAY PRN (Reason: (Drug) Ingestion) Qty: 0 RF: 0 pravastatin 20 MG tablet 20 mg PO HS Qty: 0 RF: 0 Trulicity 0.75 mg/0.5 mL pen injector See Protocol mg SUBCUT WEEKLY RF: 0 Trulicity 0.75 mg/0.5 mL pen injector 0.75 mg SUBCUT WEEKLY RF: 0 losartan 25 mg tablet 25 mg PO DAILY RF: 0 prednisone 20 mg tablet 20 mg DAILY RF: 0 Diet/Activity/Treatments Diet: Diet as Tolerated and Carb-consistent/Diabetic Activity: As tolerated Visit Report/Discharge Packet Instructions: DI for COVID-19 (Suspected or Confirmed ), COVID-19: Protecting Yourself When You're at High Risk Quality VTE Deep Vein Thrombosis/Pulmonary Embolism Present on Admission: No
[2020-09-15 09:12] VITALS: PULSE 77; RESP 18; O2SAT 90
[2020-09-15] MEDS: ALBUTEROL HFA MDI 60 PUFF/8 GM INHALER INH (09:12)
[2020-09-15] MEDS: LOSARTAN 25 MG TABLET PO (09:29)
--- NOTE | 2020-09-15 11:20 | PC.NURSE ---
Discharge: Pt feels ready to d/c home. No use of O2 and sats have remained at 93-95%. Tele NSR. UP in room indep. Still feels a little weak but pt reports she is improved from when she came in. Does self prone. Reviewed d/c packet. Given info for covid and same explained. No new rx. Spouse also has covid and he is picking her up. Spouse to call from the entrance to ED and not come into the building. He did so. Pt d/c home via auto w/spouse.
[2020-09-16 12:59] LABS: Acinetobacter baumannii Not Detected (Not Detect); Candida albicans Not Detected (Not Detect); Candida glabrata Not Detected (Not Detect); Candida krusei Not Detected (Not Detect); Candida parapsilosis Not Detected (Not Detect); Candida tropicalis Not Detected (Not Detect); E. coli Not Detected (Not Detect); Enterobacter cloacae complex Not Detected (Not Detect); Enterobacteriaceae species Not Detected (Not Detect); Enterococcus species Not Detected (Not Detect); Haemophilus influenzae Not Detected (Not Detect); Listeria monocytogenes Not Detected (Not Detect); Neisseria meningitidis Not Detected (Not Detect); Proteus species Not Detected (Not Detect); Pseudomonas aeruginosa Not Detected (Not Detect); Serratia marcescens Not Detected (Not Detect); Staphylococcus species Not Detected (Not Detect); Streptococcus agalactiae (Gr B Not Detected (Not Detect); Streptococcus pneumonia Not Detected (Not Detect); Streptococcus pyogenes (Gr A) Not Detected (Not Detect); Streptococcus species Not Detected (Not Detect)
[2020-09-18 13:45] LABS: COVID19 -Nasal RAPID POSITIVE (Negative)
== END 2020-09-15 10:45 | disposition home or self-care (01) | DRG 177 ==
LOC: ED 08:15 → AC 12:15
PROVIDERS: Admitting Provider Internal Medicine; Emergency Provider Emergency Medicine; Referring Provider Emergency Medicine; Visit Provider Internal Medicine
DX: U07.1 COVID-19 (principal); J12.89 Other viral pneumonia; E11.9 Type 2 diabetes mellitus without complications; I10 Essential (primary) hypertension; E78.5 Hyperlipidemia, unspecified; K21.9 Gastro-esophageal reflux disease without esophagitis; Z79.84 Long term (current) use of oral hypoglycemic drugs
CPT/HCPCS: 36415; 36600; 71045; 71275; 80053; 81001; 82550; 82805; 82962; 83036; 83605; 83615; 83735; 84145; 84443; 84484; 85025; 85379; 85610; 86140; 87040; 87150; 87205; 87633; 87635; 93005; 94640; 94762; 96361; 96365; 96375; 99285; 99291; A9270; J1100; J1644; Q9967

== ENCOUNTER → 2021-12-10 17:01 | Outpatient (CLI) | payer OTHER, SELFPAY ==
[2020-09-13 14:00] VITALS: BMI 24.7
--- NOTE | 2021-12-10 17:06 | DI.MRI.S_ITS ---
PROCEDURE: MR SHOULDER RT WO CON INDICATIONS: Pain right shoulder TECHNIQUE: Noncontrast oblique coronal T2 fast spin echo with fat saturation, oblique sagittal T1 spin echo and T2 fast spin echo with fat saturation, axial T1 spin echo and T2 fast spin echo with fat saturation through the shoulder. COMPARISON: [facility] [place], CR, XR SHOULDER 2+ VIEWS BILATERAL, 07/08/2021, 13:03. FINDINGS: Image quality: There is mild motion artifact. Rotator cuff: There is mild tendinopathy of the supraspinatus and infraspinatus. Mild bursal surface partial thickness tearing is demonstrated in the distal supraspinatus near its insertion. There is minimal interstitial partial tearing in the distal infraspinatus distally with mild extension proximally along the myotendinous junction. The subscapularis demonstrates mild tendinopathy with mild partial tearing distally at its insertion. No full-thickness or high-grade rotator cuff tear. The teres minor appears intact. Sagittal images demonstrate no fatty muscle atrophy. Bones and bursae: No bone marrow contusions or fractures. There is moderate to severe acromioclavicular joint degeneration including capsular hypertrophy and osteophytosis with mild periarticular soft tissue and bone marrow edema. The acromion demonstrates minimal inferior osteophytosis laterally, without an os acromiale. A small amount of subacromial/subdeltoid bursal fluid is present. There is mild glenohumeral joint degeneration. Capsule and soft tissues: There is mild degenerative tearing in the posterior inferior labrum. There is also suspected mild degenerative tearing in the posterosuperior labrum. The long head of the biceps tendon demonstrates mild segmental tendinopathy proximally with minimal interstitial partial tearing.. The rotator interval appears normal, without fibrosis. The coracohumeral ligament is normal in thickness. IMPRESSION: 1. Mild partial tearing of the distal supraspinatus, infraspinatus, and subscapularis as described without a high-grade or full-thickness rotator cuff tear. No tendon retraction or fatty muscle atrophy. 2. Moderate to severe acromioclavicular joint degeneration with a small amount of subacromial/subdeltoid bursal fluid. 3. Mild degenerative tearing of the posteroinferior labrum and suspected mild degenerative tearing of the posterosuperior labrum. 4. Mild segmental tendinopathy of the long head of the biceps tendon proximally with minimal interstitial partial tearing. Dictated by: Bryan Wade M.D. on 12/11/2021 at 10:36 Approved by: Bryan Wade M.D. on 12/11/2021 at 10:46
== END ==
PROVIDERS: PCP Internal Medicine; Referring Provider Nurse Practitioner Family; Visit Provider Nurse Practitioner Family
DX: M75.111 Incomplete rotator cuff tear or rupture of right shoulder, not specified as traumatic (principal); M19.011 Primary osteoarthritis, right shoulder; S43.491A Other sprain of right shoulder joint, initial encounter; S46.111A Strain of muscle, fascia and tendon of long head of biceps, right arm, initial encounter; M25.511 Pain in right shoulder
CPT/HCPCS: 73221

== ENCOUNTER 2023-05-28 11:44 | Day surgery (SDC) | payer OTHER, SELFPAY ==
[2020-09-13 14:00] VITALS: BMI 24.7
[2023-05-18 12:16] VITALS: BMI 24.8
[2023-05-28] VITALS (7 sets, daily range): BP systolic 143–164; BP diastolic 76–99; PULSE 63–90; RESP 12–16; TEMP 36–36.1; O2SAT 96–98; BMI 24.7
--- NOTE | 2023-05-28 11:53 | PM.PREOP ---
Pre-operative Note Interval Note History & Physical reviewed/Exam performed by Physician: Yes Changes to H&P: No
[2023-05-28] MEDS: LACTATED RINGERS 1,000 ML 42 ML IV (13:36)
--- NOTE | 2023-05-28 15:04 | P.HP_ITS ---
History of Present Illness History of Present Illness Date Patient Seen: 05/28/23 Time Patient Seen: 14:30 Chief complaint: Right Arthroscopy Shoulder Narrative: 58-year-old female with right shoulder pain and weakness unresponsive to conservative treatment. Patient had an MRI showing signs of a rotator cuff tear. [facility] Medical History Chronic GERD Hyperlipidemia Hypertension Type 2 diabetes mellitus Surgical History History of hysterectomy Hx of surgical procedure No significant past surgical history Family History Mother Peptic ulcer Father Brain tumor Social History household members: spouse Smoking Status: Never smoker alcohol intake: never Meds Home Medications and Allergies Home Medications Medication Instructions Recorded Confirmed Type metformin 500 mg tablet,extended 1,000 mg PO BID ##0 12/11/11 05/28/23 History release 24 hr (Glucophage XR) multivitamin 1 tab PO QAM ##0 05/12/12 05/18/23 History esomeprazole magnesium 40 mg 20 mg PO QDAY PRN (Drug) Ingestion 09/13/16 05/28/23 History capsule,delayed release (Nexium) ##0 dulaglutide 0.75 mg/0.5 mL 0.75 mg SUBCUT WEEKLY 09/13/20 05/28/23 History subcutaneous pen injector (Trulicity) dulaglutide 0.75 mg/0.5 mL See Protocol SUBCUT WEEKLY Diabetes 09/13/20 09/13/20 History subcutaneous pen injector (Trulicity) losartan 25 mg tablet 25 mg PO DAILY 09/13/20 05/28/23 History empagliflozin 10 mg tablet 10 mg PO DAILY 05/28/23 05/28/23 History (Jardiance) Allergies Allergy/AdvReac Type Severity Reaction Status Date / Time prednisone [PREDNISONE] Allergy Intermediate HIVES Verified 05/28/23 13:07 ibuprofen [IBUPROFEN] Allergy Mild Gastrointestinal Verified 05/28/23 13:07 Upset Exam Vital Signs (past 8 hours): - 05/28/23 13:26 Temperature 96.8 F L Pulse Rate 63 Respiratory Rate 15 Blood Pressure 164/86 H Pulse Oximetry 97 Oxygen Delivery Method Room Air Oxygen Delivery Method Room Air Narrative Exam Narrative: Decreased range of motion to the right shoulder. Pain with active as well as passive range of motion of the shoulder. Positive impingement signs. Pain and weakness in infraspinatus and supraspinatus. No sign of any subscapularis weakness. Glenohumeral joint showing no sign of any crepitus or instability. Negative Speed's negative [place]'s negative Yergason's. Assessment & Plan Assessment & Plan narrative: Right rotator cuff tear that has been unresponsive to conservative treatment. Due to this fact patient is interested in surgery. Fully understands the risks and limitations associated with the procedure. The risk, benefits, alternatives, possible complications, operative course, and postop outcomes were discussed. Complications including but not limiting to bleeding, infection, fracture, nerve injury, continued pain postoperatively or instability postoperatively were discussed in detail. Medical complications including but not limited to deep venous thrombosis event, anesthesia complications with excessive bleeding, vascular events or cardiac events and other possible complications were discussed in detail. Need for postoperative rehabilitation and anticipated hospital stay and clinical course were discussed in detail. Patient acknowledges understanding and elects to proceed with surgery.
--- NOTE | 2023-05-28 15:06 | PM.PREOP ---
Pre-operative Note Interval Note History & Physical reviewed/Exam performed by Physician: Yes Changes to H&P: No
[2023-05-28] MEDS: CEFAZOLIN 2 GM/100 ML PREMIX 100 ML IV (15:26)
--- NOTE | 2023-05-28 16:04 | SUR.OPER ---
Beach chair with Schlein shoulder positioner. Lower body on padded OR bed. Head in foam padded head cradle, secured with straps. Non-operative arm secured <90 degrees abduction. Pillow under knees. Safety belt at thigh. Cloth tape over blanket over lower legs.
[2023-05-28] MEDS: SODIUM CHLORIDE IRRIG SOLUTION 6,000 ML, EPINEPHrine 2 MG IRR (16:24)
[2023-05-28] MEDS: LIDOCAINE 1% W/EPI 20 ML INJ (16:28)
--- NOTE | 2023-05-28 17:02 | P.OP_ITS ---
Operative Date/Time/Diagnoses Date of procedure: 05/28/23 Time of procedure: 15:00 Pre-op diagnosis: Right rotator cuff tear Post-op diagnosis: same Procedure & Clinicians Procedure: Right shoulder arthroscopic subacromial decompression extensive debridement and rotator cuff repair Same procedure as scheduled: Yes Indications: Right rotator cuff tear Surgeon: Walter Melendez Hide Dyer: Yamilka Huang Anesthesia Type: General and Peripheral nerve block Operative Notes Findings: Full-thickness tear of the anterior aspect of the supraspinatus. Significant degenerative changes throughout the subacromial space as well as the glenohumeral joint. Arthritic changes to the glenohumeral joint as well as degenerative changes throughout the labrum and the biceps tendon. Rotator cuff tissue of rather poor quality. Significant synovitis and bursitis in the subacromial and subdeltoid space. Closure Type: primary Applied: implant(s) (Arthrex speed bridge. Plus a single self punching lateral anchor) and other Estimated Blood Loss (mL): 5 Procedure in detail: On date of service, Patient was met in the holding area. The operative site was signed and witnessed by the OR staff. The surgeries once again discussed with the patient and any remaining questions they had were answered fully. Patient was taken back to the operating theater and placed on the operating table in a supine position. Great care was taken to ensure that all bony prominences were properly padded. Patient was then placed into the beach chair position. The head and neck were properly positioned and secured. A timeout was performed verifying patient's name, procedure, and the operative site. The upper extremity was then prepped and draped in the normal sterile fashion. Previously, the bony anatomy and portal sites were marked out as well as injected with Marcaine with epinephrine. An 11 blade was used to make an incision in the posterior aspect of the shoulder. The camera was placed, and a diagnostic shoulder scope was performed. Findings listed above. Next under direct visualization, a anterior portal was made. Shaver was brought in and extensive debridement of the degenerative changes to the labrum was performed. Shaver was used to debride the degenerative changes to the humeral head as well as the glenoid. Shaver was also used to debride any tearing to the articular surface of the rotator cuff as well as the biceps tendon. Next the camera was placed into the subacromial space. A lateral portal was obtained under direct visualization. A combination of the shaver and vapor wand, a debridement of the inflamed tissue as well as inflamed bursa was performed. The lateral gutter was also cleaned out. There was a significant amount of bursitis and synovitis in both the subacromial and subdeltoid space. After this was all cleaned out, This gave us good visualization of the bursal aspect of the rotator cuff as well as the acromial arch. There was an obvious impingement lesion in the acromial arch. Next we turned our attention to the subacromial decompression. Next, a [place] [place] anical rasp was then used to do a subacromial decompression. This allowed us to convert the acromion to a type I acromial. This also allowed us to shave down the bony lesion in the acromial space. The rasp was placed into the lateral portal as well as the anterior portal in order to do a complete subacromial decompression. We next turned our attention to the distal clavicle. Using the shaver in the vapor wand we were able to clean out all the soft tissue around the distal clavicle as well as into the a.c. joint. This gave us good visualization of the arthritic changes to the distal clavicle as well as good of the a.c. joint allowing us to assess our distal clavicle excision. Of the inferior osteophytes coming off the distal clavicle. Using the mechanical rasp in the anterior portal, we were able to remove the inferior osteophytes as well as do a distal clavicle excision. The camera was then placed into the anterior portal which gave us a direct visualization of the a.c. joint allowing us to assess the distal clavicle excision. We then turned our attention to the rotator cuff tear. Patient had A U shaped tear involving the anterior aspect of the supraspinatus. The torn tissue was rather poor quality and rather friable so a shaver was used to debride down to more healthy tendon tissue. We could very easily pull it back to the rotator cuff footprint. Using the bur, the rotator cuff footprint was decorticated down to bleeding bone. Next, 2 medial anchors were placed. One anteriorly 1 posteriorly. Each anchor had 2 strands of fiber tape for a speed bridge repair. The sutures from the posterior anchor were passed through the posterior aspect of the rotator cuff tear. Then the sutures from the anterior anchor was passed through the anterior aspect of the supraspinatus. When pulling on the sutures we were able to reduce the rotator cuff back down onto the footprint. Next, a punch was used to make a hole in the bone for the 2 medial anchors. This was done also anteriorly and posteriorly. A single suture from the anterior medial anchor and a single suture from the posterior medial anchor were placed into the anterior lateral anchor allowing us to tenodesis the rotator cuff across the rotator cuff footprint for the supraspinatus. This was then repeated with the remaining suture both anteriorly and posteriorly. And these 2 sutures were placed into the posterior medial anchor and tenodesis posteriorly providing a crisscross pattern providing a secure repair of the rotator cuff tear. Before the row repair most of the humeral head was exposed. After the repair there was good coverage of the entire humeral head and a very secure repair of the rotator cuff. Shoulder was taken through range of motion and there was no sign of any other te aring. No sign of any impingement lesions. Camera and cannulas were removed. Portal sites were closed. Patient's shoulder was cleaned, dried, and dressed. Patient was extubated and taken to [facility] PACU in stable condition. Post-operative Condition: stable Disposition: PACU Plan for aftercare: Patient will follow our postoperative protocol for rotator cuff repair
== END 2023-05-28 18:13 | disposition home or self-care (01) ==
PROVIDERS: PCP Internal Medicine; Referring Provider Orthopaedic Surgery; Visit Provider Orthopaedic Surgery
PROC: (CPT 29805; principal; 2023-05-28 13:45)
DX: M75.101 Unspecified rotator cuff tear or rupture of right shoulder, not specified as traumatic (principal); M19.011 Primary osteoarthritis, right shoulder; M75.41 Impingement syndrome of right shoulder; E11.9 Type 2 diabetes mellitus without complications; I10 Essential (primary) hypertension; K21.9 Gastro-esophageal reflux disease without esophagitis; E78.5 Hyperlipidemia, unspecified; Z79.84 Long term (current) use of oral hypoglycemic drugs; G89.18 Other acute postprocedural pain; M25.711 Osteophyte, right shoulder; M65.811 Other synovitis and tenosynovitis, right shoulder; M75.51 Bursitis of right shoulder
CPT/HCPCS: 29827; 29824; 29823; 29826; 64450; J0171; J0330; J0690; J1100; J2250; J2405; J2704; J2765; J3010

== ENCOUNTER 2023-12-05 07:36 | Observation (INO) | payer OTHER, SELFPAY ==
[2020-09-13 14:00] VITALS: BMI 24.7
[2023-12-05] VITALS (17 sets, daily range): BP systolic 119–158; BP diastolic 74–92; PULSE 71–95; RESP 14–20; TEMP 36.4–37.3; O2SAT 95–100; BMI 24.7
--- NOTE | 2023-12-05 | PATH_ITS ---
[facility] Accession Number: [id number] No. of containers..01 Tissue . 01 Material submitted: . appendix - APPENDIX . 01 Diagnosis: APPENDIX, APPENDECTOMY: Acute appendicicitis and periappendicitis. [facility] 12/10/2023 1032 Local . 01 Electronically signed: . Cynthia Gu MD, Pathologist NPI- [id number] . 01 Gross description: . The specimen is received in formalin labeled with the patient's name, , and appendix, consists of a single vermiform appendix measuring 5.4 cm in length and 0.8 cm in diameter. The mesoappendix measures 5.9 x 2.8 x 2.8 cm. The serosal surface is casarez and hemorrhagic with adherent lerner fibrinous exudate at the distal tip. The margin is stapled and is inked black. The tissue is serially sectioned to reveal a lumen filled with brown fecal material and a single fecalith measuring 0.8 x 0.4 cm. The mucosal surface is red-casarez and congested. No lesions are seen. Correctional Counselor sections to include the appendiceal orifice margin, one-half of the distal tip, and cross sections of appendix are submitted in cassette A1. ([id number]) /MRV 12/09/2023 1315 Local . 01 Pathologist provided ICD-10: K35.80 . 01 CPT . 063962 Specimen Comment: A courtesy copy of this report has been sent to [phone] Performed at: 01 [facility] [address] [place] [address] [address] [facility], [place], [place] [id number] MD Bryan Moreno MD Phone: [phone]
--- NOTE | 2023-12-05 07:44 | ED.GENADULT ---
HPI - General Adult General Chief complaint: Abdominal Pain Stated complaint: lower abd and back pain Time Seen by Provider: 12/05/23 07:43 History of Present Illness HPI narrative: 58-year-old woman with a history of diabetes, hypertension, reflux who presents with self-described 10/10 flank and right lower quadrant pain for the last 48 hours. She does not describe any fevers. She states that she did have a pain similar to this approximately a month ago but it resolved bowel movement. She has had a bowel movement last night and this morning is still having significant pain. She was nauseated last night but not vomiting. She describes the pain is significant but not bad if she does not move and declines any initial pain medications. Abdominal surgeries include a hysterectomy. She believes she still has her gallbladder and her appendix. She has not complaining of chest pain, palpitations, headaches, myalgias, cough Related Data Home Medications Medication Instructions Recorded Confirmed metformin 500 mg tablet,extended 1,000 mg PO BID ##0 12/11/11 05/28/23 release 24 hr (Glucophage XR) multivitamin 1 tab PO QAM ##0 05/12/12 05/18/23 esomeprazole magnesium 40 mg 20 mg PO QDAY PRN (Drug) Ingestion 09/13/16 05/28/23 capsule,delayed release (Nexium) ##0 dulaglutide 0.75 mg/0.5 mL 0.75 mg SUBCUT WEEKLY 09/13/20 05/28/23 subcutaneous pen injector (Trulicity) dulaglutide 0.75 mg/0.5 mL See Protocol SUBCUT WEEKLY Diabetes 09/13/20 09/13/20 subcutaneous pen injector (Trulicity) losartan 25 mg tablet 25 mg PO DAILY 09/13/20 05/28/23 empagliflozin 10 mg tablet 10 mg PO DAILY 05/28/23 05/28/23 (Jardiance) Previous Rx's Medication Instructions Recorded hydroxyzine pamoate 25 mg capsule 25 mg PO TID-QID PRN spasms #60 05/28/23 (Vistaril) caps oxycodone-acetaminophen 5 mg-325 2 tab PO Q4-6H PRN pain #60 tabs 05/28/23 mg tablet (Percocet) Allergies Allergy/AdvReac Type Severity Reaction Status Date / Time prednisone [PREDNISONE] Allergy Intermediate HIVES Verified 12/05/23 07:45 ibuprofen [IBUPROFEN] Allergy Mild Gastrointestinal Verified 12/05/23 07:45 Upset Review of Systems Review of Systems Narrative: Pertinent positive and negative findings as per HPI Patient History Medical History Hyperlipidemia Hypertension Chronic GERD Type 2 diabetes mellitus Surgical History Hx of surgical procedure History of hysterectomy No significant past surgical history Family History Mother Peptic ulcer Father Brain tumor Social History household members: spouse Smoking Status: Never smoker alcohol intake: never Smoking Status: Never smoker alcohol intake frequency: 0-2 drinks per day Substance Use Type: does not use Exam Initial Vital Signs Initial Vital Signs: Vital Signs Temperature 98.0 F 12/05/23 07:41 Pulse Rate 79 12/05/23 07:41 Pulse Oximetry 98 12/05/23 07:41 General: Healthy appearing, in mild distress. Able to give a complete and coherent history. Well-nourished well-developed HEENT: Moist mucous membranes, normal sclera with reactive pupils, Respiratory: Lungs are clear to auscultation, no wheezing no rales no rhonchi. Full and symmetrical air movement Cardiac: Regular rate and rhythm no murmurs no bruits Abdomen: Soft, she is significant tenderness with rebound in the right lower quadrant. Palpation in the left lower quadrant exacerbates right lower quadrant pain. Pain radiates up into the right upper quadrant. No palpable back pain or flank pain Skin: Warm and dry, no rashes Neurologic: Grossly neurologically intact with no obvious asymmetries or abnormalities Extremities: No trauma, well perfused Psych: Cooperative, appropriate insight and affect Course Orders Ordered: ED Orders 12/05/23 07:47 Complete Blood Count AUTO DIFF Stat Comprehensive Metabolic Panel Stat Lipase Stat 12/05/23 07:48 CT kidney ureter bladder (KUB) Stat EKG-12 Lead Stat 12/05/23 07:50 Urine Microscopic Stat Ondansetron HCl (Ondansetron 4 Mg/2 Ml Inj) 4 mg IV NOW PRN PRN Reason: Nausea And Vomiting Ondansetron HCl (Ondansetron 4 Mg Odt) 4 mg PO NOW PRN PRN Reason: Nausea And Vomiting Vital Signs Vital signs: Vital Signs - 8 hr 12/05/23 07:41 12/05/23 07:42 12/05/23 07:42 Temperature 98.0 F Pulse Rate 79 83 Respiratory Rate Blood Pressure 158/92 H Pulse Oximetry 98 98 Oxygen Delivery Method 12/05/23 07:45 Temperature 98 F Pulse Rate 82 Respiratory Rate 20 Blood Pressure 158/92 H Pulse Oximetry 100 Oxygen Delivery Method Room Air Medical Decision Making Lab Data 12/05/23 07:47 12/05/23 07:47 Labs: Lab Results 12/05/23 12/05/23 Range/Units 07:47 07:50 WBC 8.6 (4.5-11.0) X10^3/uL RBC 4.29 (4.0-5.2) X10^6/uL Hgb 14.0 (12.0-16.0) g/dL Hct 41.0 (36-46) % MCV 95.6 (80-100) fL MCH 32.5 (26-34) PG MCHC 34.1 (30-36) % RDW 13.1 (11.6-14.8) % Plt Count 229 (150-400) X10^3/uL Neut % (Auto) 62.9 (50-75) % Lymph % (Auto) 25.3 (25-40) % [place] % (Auto) 10.2 (3-14) % Eos % (Auto) 1.2 L (2-4) % Baso % (Auto) 0.4 (0-2) % Neut # (Auto) 5400 (6698-2145) /uL Lymph # (Auto) 2200 (2335-2858) /uL [place] # (Auto) 900 (0-900) /uL Eos # (Auto) 100 (0-450) /uL Baso # (Auto) 0 (0-100) /uL Sodium 136 L (137-145) mmol/L Potassium 4.1 (3.4-5.1) mmol/L Chloride 105 (98-107) mmol/L Carbon Dioxide 23 (22-32) mmol/L BUN 16 (7-17) mg/dL Creatinine 0.44 L (0.52-1.04) mg/dL Estimated GFR > 60 (>60) mL/min BUN/Creatinine Ratio 36.4 H (6-22) Glucose 159 H (70-100) mg/dL Calcium 9.5 (8.4-10.2) mg/dL Total Bilirubin 0.8 (0.2-1.3) mg/dL AST 32 (14-36) IU/L ALT 39 H (<35) IU/L Alkaline Phosphatase 59 (38-126) U/L Total Protein 8.2 (6.3-8.2) g/dL Albumin 4.4 (3.5-5.0) g/dL Globulin 3.8 (1.7-4.1) g/dL Albumin/Globulin Ratio 1.2 (1.0-2.8) Lipase 237 (23-300) U/L Urine RBC 0-1/hpf (0-5/HPF) Urine WBC 0-1/hpf (0-5/HPF) Ur Squamous Epith Cells 0-1 /hpf (0-5/HPF) Urine Bacteria None seen (None) Ur Culture Indicated? Cult not indicated Vol Urine Centrifuged 10ml (spun) Urine Dip Bedside Urine Glucose 1000 mg/dl Bedside Urine Bilirubin - Negative Bedside Urine Ketone ++ 40 Urine Specific [place] 1.015 Bedside Urine Occult Blood ++ Bedside Urine pH 6.0 Bedside Urine Protein - Negative Bedside Urine Urobilinogen - Negative Bedside Urine Nitrite - Negative Bedside Urine Leukocytes - Negative Esterase Point of care testing: Urine Dip Bedside Urine Glucose 1000 mg/dl Bedside Urine Bilirubin - Negative Bedside Urine Ketone ++ 40 Urine Specific [place] 1.015 Bedside Urine Occult Blood ++ Bedside Urine pH 6.0 Bedside Urine Protein - Negative Bedside Urine Urobilinogen - Negative Bedside Urine Nitrite - Negative Bedside Urine Leukocytes - Negative Esterase [facility] Narrative Medical decision making narrative: CC: Right lower quadrant pain for the last 48 hours Complicating co-morbidities: Diabetes, prior hysterectomy Data collected from: patient Medical records reviewed: Discharge summary from September of 2020 for COVID reviewed Differential considered: Acute appendicitis, kidney stone, diverticulitis, gallbladder disease Exam documented above, pertinent findings include: Patient is comfortable while she has not moving. She does have developing peritoneal signs in the right lower quadrant Lab Test results independently reviewed as above. Pertinent findings: CBC is unremarkable with no leukocytosis Chemistries are benign with normal renal function. AST is slightly elevated at 39 and she has had similar findings previously Urine does not suggest bladder infection Independently reviewed EKG: Sinus rhythm at a rate of 81. No acute ischemic changes. Normal intervals, normal axis Imaging studies independently reviewed: Radiologist called to review studies in real-time. Reports that she has acute appendicitis with seemingly tip involvement only. He did not appreciate a appendicolith. Consultations: Dr Soto, will admit Treatments: Zofran, parenteral fluids, as needed narcotics Discussion: 58-year-old woman with increasing right lower quadrant tenderness for the last [address] confirmed appendicitis with no apparent appendicolith appreciated. Patient is not septic and as long as she does not move pain is controllable. Findings are reviewed with Dr. Soto, General surgery. She will admit the patient begin antibiotics and will discuss medical versus surgical management. Findings and plan were discussed with the patient. She understands, Questions are answered and patient will be safe to transfer to the floor Discharge Plan Departure Patient Disposition: Admitted as Observation Clinical Impression: Acute appendicitis Qualifiers: Acute appendicitis type: with localized peritonitis Appendicitis gangrene presence: unspecified whether gangrene present Appendicitis perforation presence: unspecified whether perforation present Appendicitis abscess presence: unspecified whether abscess present Qualified Code(s): K35.30 - Acute appendicitis with localized peritonitis, without perforation or gangrene Admit Date/Time: 12/05/23 09:29
--- NOTE | 2023-12-05 07:48 | DI.CT.S_ITS ---
PROCEDURE: CT KIDNEY URETER BLADDER (KUB) INDICATIONS: 07/21 RLQ flank pain and tender to touch TECHNIQUE: Axial sections were acquired from the lung bases to the pubic symphysis. Coronal and sagittal reformats were performed. For radiation dose reduction, the following was used: automated exposure control, adjustment of mA and/or kV according to patient size. COMPARISON: [facility], CT, CT ANGIO CHEST PE PROTOCOL, 09/13/2020, 10:37. FINDINGS: Image quality: Diagnostic. Lower Chest: No significant findings. URINARY: Right Kidney: No stones or hydronephrosis. Right Ureter: No hydroureter. Left Kidney: No stones or hydronephrosis. Left Ureter: No hydroureter. Bladder: Normal wall thickness. No stones. ABDOMEN: Liver: No contour-deforming solid mass. Enlarged, fatty infiltrated liver can be seen Gallbladder: There is gallstone seen gallbladder series 2, image 30. No additional CT signs cholecystitis are seen Biliary ducts: No biliary dilation. Pancreas: No ductal dilation. Spleen: Size is within normal limits. Adrenal Glands: No adrenal nodules. Stomach and Bowel: There is an abnormal appendix, with its tip dilated to 12 mm. Inflammatory change can be seen surrounding tip of the appendix. The tip of the appendix is mildly hyperenhancing. No dilated loops of small bowel are seen. Colonic diverticulosis is seen, without findings of active diverticulitis. The stomach demonstrates no significant abnormality. Peritoneum: Negative for peritoneal abscess. No abnormal intraperitoneal fluid. No free air. Ventral Wall: This patient is status post hysterectomy. No adnexal masses are seen. Abdominal Nodes: No enlarged retroperitoneal or mesenteric lymph nodes. Vessels: Aorta and inferior vena cava are normal in size. PELVIS: Pelvic Organs: Unremarkable. Pelvic Nodes: Unremarkable. Miscellaneous: No inguinal hernias are seen. Bones: Unremarkable. IMPRESSION: No obstructing stones or hydronephrosis. Appendicitis involving the tip of the appendix. No findings of perforation or abscess can be seen. Additional findings: Enlarged, fatty liver Gallstone Hysterectomy Diverticulosis, without active diverticulitis Note: Case discussed by telephone with Dr. Ya at 9:24 a.m. [place] time on December 05, 2023. Dictated by: Devon Morales M.D. on 12/05/2023 at 8:15 Approved by: Devon Morales M.D. on 12/05/2023 at 8:24
[2023-12-05 07:55] LABS: Add Manual Diff / Slide Review NO; Basophils Absolute Auto 0 /uL (0-100); Basophils Percent Auto 0.4 % (0-2); Eosinophils Absolute Auto 100 /uL (0-450); Eosinophils Percent Auto 1.2 % (2-4); Lymphocytes Absolute Auto 2200 /uL (1100-4500); Lymphocytes Percent Auto 25.3 % (25-40); Mean Corpuscular HGB Conc 34.1 % (30-36); Mean Corpuscular Hemoglobin 32.5 PG (26-34); Mean Corpuscular Volume 95.6 fL (80-100); Monocytes Absolute Auto 900 /uL (0-900); Monocytes Percent Auto 10.2 % (3-14); Neutrophils Absolute Auto 5400 /uL (1500-7000); Neutrophils Percent Auto 62.9 % (50-75); Platelet Count 229 X10^3/uL (150-400); Red Blood Cell Count 4.29 X10^6/uL (4.0-5.2); Red Cell Distribution Width 13.1 % (11.6-14.8); White Blood Cell Count 8.6 X10^3/uL (4.5-11.0)
[2023-12-05 08:06] LABS: Alanine Aminotransferase 39 IU/L (<35); Albumin 4.4 g/dL (3.5-5.0); Albumin Globulin Ratio 1.2 (1.0-2.8); Alkaline Phosphatase 59 U/L (38-126); Aspartate Aminotransferase 32 IU/L (14-36); BUN Creatinine Ratio 36.4 (6-22); Bilirubin Total 0.8 mg/dL (0.2-1.3); Blood Urea Nitrogen 16 mg/dL (7-17); Calcium 9.5 mg/dL (8.4-10.2); Carbon Dioxide 23 mmol/L (22-32); Chloride 105 mmol/L (98-107); Estimated Glomerular Filt Rate > 60 mL/min (>60); Globulin 3.8 g/dL (1.7-4.1); Glucose 159 mg/dL (70-100); HEMOLYSIS 19 (0-50); Lipase 237 U/L (23-300); Potassium 4.1 mmol/L (3.4-5.1); Sodium 136 mmol/L (137-145); Total Protein 8.2 g/dL (6.3-8.2)
[2023-12-05 08:14] LABS: Bacteria Urine None Seen; Culture Indicated Urine Cult Not Indicated; RBC Urine 0-1/HPF (0-5/HPF); Squamous Epithelial Cell Urine 0-1 /HPF (0-5/HPF); Urine Volume 10mL (spun); WBC Urine 0-1/HPF (0-5/HPF)
[2023-12-05] MEDS: PIPERACILLIN/TAZO 3.375 GM in SODIUM CHLORIDE 0.9% 100 ML IV (10:04)
[2023-12-05] MEDS: SODIUM CHLORIDE 0.9% 1,000 ML 150 ML IV (10:07)
--- NOTE | 2023-12-05 13:23 | PC.NURSE ---
pt refused advil, she is allergic and does not want to take it.
--- NOTE | 2023-12-05 14:05 | P.HP_ITS ---
History of Present Illness History of Present Illness Date Patient Seen: 12/05/23 Time Patient Seen: 14:05 Chief complaint: lower abd and back pain Narrative: Four days of lower abdominal pain and back pain. No anorexia, no fever, normal WBC. CT scan with possible appendicitis at the tip. Discussed with patient antibiotics +/- surgery, she prefers surgery. [facility] Medical History Hyperlipidemia Hypertension Chronic GERD Type 2 diabetes mellitus Surgical History Hx of surgical procedure History of hysterectomy No significant past surgical history Family History Mother Peptic ulcer Father Brain tumor Social History household members: spouse Smoking Status: Never smoker alcohol intake: never Meds Home Medications and Allergies Home Medications Medication Instructions Recorded Confirmed Type metformin 500 mg tablet,extended 1,000 mg PO BID ##0 12/11/11 12/05/23 History release 24 hr (Glucophage XR) multivitamin 1 tab PO QAM ##0 05/12/12 12/05/23 History esomeprazole magnesium 40 mg 20 mg PO QDAY PRN (Drug) Ingestion 09/13/16 12/05/23 History capsule,delayed release (Nexium) ##0 dulaglutide 0.75 mg/0.5 mL 0.75 mg SUBCUT WEEKLY 09/13/20 12/05/23 History subcutaneous pen injector (Trulicity) losartan 25 mg tablet 25 mg PO DAILY 09/13/20 12/05/23 History empagliflozin 10 mg tablet 10 mg PO DAILY 05/28/23 12/05/23 History (Jardiance) hydroxyzine pamoate 25 mg capsule 25 mg PO TID-QID PRN spasms #60 05/28/23 12/05/23 Rx (Vistaril) caps Allergies Allergy/AdvReac Type Severity Reaction Status Date / Time prednisone [PREDNISONE] Allergy Intermediate HIVES Verified 12/05/23 07:45 ibuprofen [IBUPROFEN] Allergy Mild Gastrointestinal Verified 12/05/23 07:45 Upset Review of Systems Review of Systems ROS: Yes All systems reviewed with the patient and are negative except as otherwise documented Exam Vital Signs (past 8 hours): - 12/05/23 07:41 12/05/23 07:42 12/05/23 07:42 Temperature 98.0 F Pulse Rate 79 83 Respiratory Rate Blood Pressure 158/92 H Pulse Oximetry 98 98 Oxygen Delivery Method 12/05/23 07:45 12/05/23 08:00 12/05/23 08:00 Temperature 98 F Pulse Rate 82 80 Respiratory Rate 20 20 Blood Pressure 158/92 H 148/79 H Pulse Oximetry 100 97 Oxygen Delivery Method Room Air 12/05/23 08:30 12/05/23 08:30 12/05/23 09:00 Temperature Pulse Rate 79 Respiratory Rate 16 Blood Pressure 131/78 122/75 Pulse Oximetry 95 Oxygen Delivery Method Room Air 12/05/23 09:00 12/05/23 09:30 12/05/23 09:30 Temperature Pulse Rate 79 79 Respiratory Rate 14 15 Blood Pressure 123/78 Pulse Oximetry 96 96 Oxygen Delivery Method 12/05/23 10:00 12/05/23 10:00 Temperature Pulse Rate 79 Respiratory Rate 16 Blood Pressure 124/74 Pulse Oximetry 96 Oxygen Delivery Method Oxygen Delivery Method Room Air Const General: cooperative and comfortable Nutritional Appearance: average body habitus [facility] Head: normocephalic and atraumatic Eyes General: appearance normal, both eyes and all related structures Sclera: sclerae normal Neck Neck: trachea midline and No JVD Resp Effort & Inspection: normal respiratory effort and able to speak in complete sentences Cardio Rate: regular rate Rhythm: regular rhythm GI Palpation: soft, No guarding, No rigid and tender (RLQ tender to palpation) Skin General: turgor normal and No atrophy Neuro General: patient alert, patient awake and patient oriented x3 Cranial Nerves: tongue midline Psych Appearance: grossly normal Mental Status: mental status grossly normal Affect: normal affect Judgment: judgment good Objective Labs 12/05/23 07:47 12/05/23 07:47 Labs: Laboratory Results - last 24 hr 12/05/23 12/05/23 07:47 07:50 WBC 8.6 RBC 4.29 Hgb 14.0 Hct 41.0 MCV 95.6 MCH 32.5 MCHC 34.1 RDW 13.1 Plt Count 229 Neut % (Auto) 62.9 Lymph % (Auto) 25.3 Gates % (Auto) 10.2 Eos % (Auto) 1.2 L Baso % (Auto) 0.4 Neut # (Auto) 5400 Lymph # (Auto) 2200 Gates # (Auto) 900 Eos # (Auto) 100 Baso # (Auto) 0 Sodium 136 L Potassium 4.1 Chloride 105 Carbon Dioxide 23 BUN 16 Creatinine 0.44 L Estimated GFR > 60 BUN/Creatinine Ratio 36.4 H Glucose 159 H Calcium 9.5 Total Bilirubin 0.8 AST 32 ALT 39 H Alkaline Phosphatase 59 Total Protein 8.2 Albumin 4.4 Globulin 3.8 Albumin/Globulin Ratio 1.2 Lipase 237 Urine RBC 0-1/hpf Urine WBC 0-1/hpf Ur Squamous Epith Cells 0-1 /hpf Urine Bacteria None seen Ur Culture Indicated? Cult not indicated Vol Urine Centrifuged 10ml (spun) Assessment & Plan Assessment & Plan narrative: Possible acute appendicitis Plan: Lap appy Time Spent With Patient Time with patient: 30 to 49 minutes with 50% spent counseling/coordinating care Quality VTE Deep Vein Thrombosis/Pulmonary Embolism Present on Admission: No
[2023-12-05] MEDS: LACTATED RINGERS 1,000 ML 42 ML IV (14:55)
[2023-12-05] MEDS: BUPIVACAINE 0.25% (PF) 30 ML, EPINEPHrine 0.15 MG INJ (15:18)
--- NOTE | 2023-12-05 15:21 | SUR.OPER ---
Supine on padded OR bed, head on pillow, right arm secured on padded arm boards at <90 degrees abduction, left arm padded with gel pad and tucked at patients side, legs uncrossed, safety belt at thigh, tape over blanket over lower legs.
--- NOTE | 2023-12-05 15:44 | P.OP_ITS ---
Operative Date/Time/Diagnoses Date of procedure: 12/05/23 Time of procedure: 15:44 Pre-op diagnosis: Acute appendicitis Post-op diagnosis: same Procedure & Clinicians Procedure: Laparoscopic appendectomy Same procedure as scheduled: Yes Indications: Acute appendicitis Surgeon: Carmen Soto Click Yes if Unassisted: Yes Anesthesia Type: General and Local Operative Notes Findings: Inflammatory stage I acute appendicitis Closure Type: primary Specimen(s): other (Appendix) Estimated Blood Loss (mL): 5 Blood products transfused: none Procedure in detail: Preop diagnosis: Acute appendicitis Postop diagnosis: Same Operative procedure: Laparoscopic appendectomy Surgeon: Isabel Soto MD Anesthetic: Bharat London MD Findings: Acute appendicitis stage I inflammatory Procedure: Patient placed in a supine position. Prepped and draped sterile fashion to expose her abdomen. Infraumbilical port site was placed using open technique a 12 mm port. Insufflation began all other ports were placed under direct vision including a 5 mm port in the left lateral abdomen. And a 5 mm port in the suprapubic area. Appendix was identified and lifted cephalad for exposure. Appendiceal mesentery was taken down with electrocautery and good he mostasis. The base of the appendix was healthy in nature. A blue load SANDRA stapling device was used to amputate the appendix which was then placed into an Endo-Catch bag pulled through the infraumbilical port site intact. Abdomen was surveyed and suctioned free for any residual blood in the operative site. Staple line was healthy and nonbleeding. I then removed all ports and began closure. Closure consisted of 0 Vicryl for fascial closure of the infraumbilical port site. Skin was closed with a running 4-0 Monocryl. Skin was also a smaller ports reapproximated with Steri-Strips alone. From there sterile dressings were placed, patient was awakened, extubated, taken to recovery room in stable condition. Needle, instrument, sponge counts were correct Blood loss: 5 mL Specimen: Appendix Complications: none Post-operative Condition: stable Disposition: PACU
--- NOTE | 2023-12-05 17:40 | PC.NURSE ---
pt would like to stay tonight. notified provider. cancelled dc orders.
[2023-12-05] MEDS: OXYCODONE IR 5 MG TABLET PO ×2 (17:43→21:48)
[2023-12-05] MEDS: BENZOCAINE/MENTHOL 1 LOZ PKT 1 EACH PO (21:48)
[2023-12-05] MEDS: CELECOXIB 200 MG CAPSULE PO (21:48)
[2023-12-06 04:44] VITALS: BP 110/62; PULSE 83; RESP 18; TEMP 36.7; O2SAT 95
[2023-12-06 08:20] VITALS: O2SAT 98
[2023-12-06 08:29] VITALS: BP 122/74; PULSE 79; RESP 15; TEMP 36.8; O2SAT 97
[2023-12-06] MEDS: CELECOXIB 200 MG CAPSULE PO (08:48)
--- NOTE | 2023-12-06 08:52 | PC.NURSE ---
Addendum entered by Estela Rajan R.N. 12/06/23 12:16: pt discharged home with spouse, verbal and written instructions given Original Note: pt alert and oriented x4, up to br indep to void. had breakfast and renny well, vss abd surgical site pain 4/10 pt refuses oxy or tylenol at this time but agreed to celebrex. pt awaiting discharge home today
--- NOTE | 2023-12-06 10:15 | PM.DS.1 ---
History of Present Illness History of Present Illness Date Patient Seen: 12/06/23 Time Patient Seen: 10:15 Chief complaint: lower abd and back pain Narrative: Four days of lower abdominal pain and back pain. No anorexia, no fever, normal WBC. CT scan with possible appendicitis at the tip. Discussed with patient antibiotics +/- surgery, she prefers surgery. Discharge Providers Provider Date of admission: 12/05/23 09:29 Discharge Date: 12/06/23 Primary care physician: Doris Carr MD Discharge provider: Carmen Soto MD Summary Hospital Course Discharge Diagnosis: Acute appendicitis s/p lap appy Hospital Course: Uncomplicated Status at Discharge Cognitive/behavioral status at discharge: at baseline, oriented Functional status at discharge: independent ambulation Overall status at discharge: patient is progressing back to baseline Exam Vital Signs (past 8 hours): - 12/06/23 04:44 12/06/23 08:20 12/06/23 08:29 Temperature 98.1 F 98.3 F Pulse Rate 83 79 Respiratory Rate 18 15 Blood Pressure 110/62 122/74 Pulse Oximetry 95 98 97 Oxygen Delivery Method Room Air Oxygen Flow Rate 0 0 Oxygen Delivery Method Room Air Oxygen Flow Rate 0 Narrative Exam Narrative: abdomen with incisional discomfort o/w benign Objective Labs 12/05/23 07:47 12/05/23 07:47 PFSH Medical History Hyperlipidemia Hypertension Chronic GERD Type 2 diabetes mellitus Surgical History Hx of surgical procedure History of hysterectomy No significant past surgical history Family History Mother Peptic ulcer Father Brain tumor Social History household members: spouse Smoking Status: Never smoker alcohol intake: never Discharge Assessment & Plan Assessment and Plan Assessment: acute appendicitis s/p lap appy w/o complications Plan of Treatment: discharge home with 4 weeks of no heavy lifting. Follow up 2-4 weeks Discharge Plan Discharge Plan Patient Disposition: Home Discharge orders & Medications Prescriptions: New oxycodone 5 mg Tablet 5 mg PO Q3H PRN (Reason: Pain, Moderate (4-6)) Qty: 10 0RF Continued metformin [Glucophage XR] 500 MG tablet extended release 24 hr 1,000 mg PO BID Qty: 0 multivitamin Tablet 1 tab PO QAM Qty: 0 esomeprazole magnesium [Nexium] 40 MG capsule,delayed release(DR/EC) 20 mg PO QDAY PRN (Reason: (Drug) Ingestion) Qty: 0 Trulicity 0.75 mg/0.5 mL pen injector 0.75 mg SUBCUT WEEKLY losartan 25 mg tablet 25 mg PO DAILY Jardiance 10 mg tablet 10 mg PO DAILY hydroxyzine pamoate [Vistaril] 25 mg capsule 25 mg PO TID-QID PRN (Reason: spasms) Qty: 60 0RF Follow up/Referrals: Doris Carr MD [Primary Care Provider] - Carmen Soto MD [Physician] - Diet/Activity/Treatments Diet: Diet as Tolerated Activity: no heavy lifting for 4 weeks Skin/Wound/Dressing Care Report to your healthcare provider any signs of infection, such as:: chills, fever, increased pain and unusual drainage Visit Report/Discharge Packet Instructions: DI for an Appendectomy, [facility]: Wound Care Stand Alone Forms: Patient Portal/API, Stroke Signs & Symptoms Discharge Data Primary Care Provider: Doris Carr Attending Provider: Carmen Soto Admit Date/Time: 12/05/23 09:29 Quality VTE Deep Vein Thrombosis/Pulmonary Embolism Present on Admission: No
== END 2023-12-06 12:10 | disposition home or self-care (01) ==
LOC: ED 09:29 → AC 09:30
PROVIDERS: Admitting Provider Surgery; Emergency Provider Emergency Medicine; PCP Internal Medicine; Referring Provider Emergency Medicine; Visit Provider Surgery
PROC: 0DTJ4ZZ Resection of Appendix, Percutaneous Endoscopic Approach (ICD-10-PCS; CPT 44970; principal; 2023-12-05 15:00)
DX: K35.80 Unspecified acute appendicitis (principal); E11.9 Type 2 diabetes mellitus without complications; Z79.84 Long term (current) use of oral hypoglycemic drugs; I10 Essential (primary) hypertension; K21.9 Gastro-esophageal reflux disease without esophagitis
CPT/HCPCS: 44970; 36415; 74176; 80053; 81003; 81015; 82962; 83690; 85025; 93005; 96365; 99221; 99284; G0378; J0171; J0330; J1100; J2250; J2405; J2543; J2704; J3010

== ENCOUNTER 2024-03-18 10:30 | Day surgery (SDC) | payer OTHER, SELFPAY ==
[2023-12-05 11:13] VITALS: BMI 24.7
[2024-03-16 12:24] VITALS: BMI 24.8
[2024-03-18] VITALS (16 sets, daily range): BP systolic 113–145; BP diastolic 46–85; PULSE 66–74; RESP 10–16; TEMP 36.2–36.4; O2SAT 94–100; BMI 24.7
--- NOTE | 2024-03-18 | PATH_ITS ---
[facility] Accession Number: [id number] No. of containers..01 Tissue . 01 Material submitted: . gallbladder - GALLBLADDER . 01 Diagnosis: GALLBLADDER, CHOLECYSTECTOMY: Mild chronic calculous cholecystitis and focal cholesterolosis. Benign lymph node of cystic duct with reactive changes. Negative for dysplasia and malignancy. V 03/23/2024 1624 Local . 01 Electronically signed: . Alecia Small MD, Pathologist NPI- [id number] . 01 Gross description: . Received in formalin, labeled with two identifiers and gallbladder, is an intact gallbladder measuring 9.1 x 3.1 x 2.7 cm with an unremarkable external surface. The cystic duct margin is inked blue. A casarez lymph node candidate measures 0.6 cm in greatest dimension. The lumen contains a dark roughened calculus measuring 0.4 cm in greatest dimension grossly obstructing the cystic duct, admixed with dark green viscous bile. The mucosa is green and velvety with a small yellow polypoid structure measuring 0.1 cm in greatest dimension. The soni average 0.2 cm thick. Audio Visual Tech sections to include the cystic duct margin, intact lymph node candidate, and full-thickness sections with small yellow polyp are submitted in cassette A1. ([id number]) /FRR 03/19/2024 1529 Local . 01 Pathologist provided ICD-10: K80.50 . 01 CPT . 258768 Specimen Comment: A courtesy copy of this report has been sent to [phone] Performed at: [address] [facility] [address], [place], [place] [id number] MD Bryan Moreno MD Phone: [phone]
--- NOTE | 2024-03-18 | DI.CT.S_ITS ---
PROCEDURE: CT STROKE INDICATIONS: STROKE LIKE SYMPTOMS TECHNIQUE: Noncontrast 4.5 mm thick angled axial sections acquired from the foramen magnum to the vertex, with coronal reformats. For radiation dose reduction, the following was used: automated exposure control, adjustment of mA and/or kV according to patient size. COMPARISON: None. FINDINGS: Image quality: Diagnostic. CSF spaces: Basal cisterns are patent. No extra-axial fluid collections. Ventricles are normal in size and shape. Brain: No midline shift. No intracranial masses or hemorrhage. [place]-white matter interface is normal. Chronic appearance of low-density bifrontal subdurals. Skull and face: Calvarium and visualized facial bones are intact, without suspicious lesions. Sinuses: Visualized sinuses demonstrate minimal scattered mucosal thickening. IMPRESSION: 1. No acute intracranial process. The above findings were discussed with Dr. Grier on 03/18/2024 at 2:45 p.m. This study fulfills neurological imaging criteria for inclusion or exclusion of acute stroke therapies based on available published neurological imaging guidelines. Dictated by: Mariann Ivy M.D. on 03/18/2024 at 14:43 Approved by: Mariann Ivy M.D. on 03/18/2024 at 14:49
[2024-03-18] MEDS: LACTATED RINGERS 1,000 ML 21 ML IV ×2 (11:42→17:32)
--- NOTE | 2024-03-18 12:35 | PM.PREOP ---
Pre-operative Note Interval Note History & Physical reviewed/Exam performed by Physician: Yes Changes to H&P: No
[2024-03-18] MEDS: CEFAZOLIN 2 GM/100 ML PREMIX 100 ML IV (13:10)
--- NOTE | 2024-03-18 13:20 | SUR.OPER ---
Supine on padded OR bed, head on pillow, safety belt at thigh, left arm padded and tucked at side. Right arm secured on padded arm board <90 degrees abduction. Legs uncrossed. Padded footboard in place. Tape over blanket to secure lower legs.
[2024-03-18] MEDS: BUPIVACAINE 0.25% (PF) VIAL 30 ML INJ (13:27)
--- NOTE | 2024-03-18 14:04 | PM.OP.1 ---
Operative Date/Time/Diagnoses Date of procedure: 03/18/24 Time of procedure: 14:04 Pre-op diagnosis: Biliary colic Post-op diagnosis: same Procedure & Clinicians Procedure: Laparoscopic cholecystectomy Same procedure as scheduled: Yes Indications: 58-year-old woman with symptoms and radiographic findings consistent with biliary colic. Surgeon: Elliott Chatterjee Click Yes if Unassisted: Yes Anesthesia Type: General Operative Notes Findings: Critical view of safety established Small gallstones No acute cholecystitis Specimen(s): other (Gallbladder) Estimated Blood Loss (mL): 20 Procedure in detail: The patient was placed supine on the table and bilateral lower extremity compression devices were applied. Anesthesia was induced they were intubated with an endotracheal tube and received 2g of Ancef. A time-out was performed. They were prepped and draped in sterile fashion. An infraumbilical incision was made. The fascia was elevated incised and the abdomen was entered atraumatically. A blunt tip 12mm balloon trocar was then inserted, pneumoperitoneum was established and inspection of the abdomen demonstrated no evidence of injury. They were placed head up and right side up and then a 11 mm port was placed high in the epigastrium and two 5mm in the right upper quadrant. The gallbladder was grasped by the fundus and retracted over the liver and retracted laterally by the infundibulum. Using electrocautery the lateral plane between the gallbladder and the liver was opened towards the fundus. The gallbladder was then retracted laterally and the medial plane was developed in the same manner. With the gallbladder mobilized the bottom of the cystic plate was visualized. The hepatocystic triangle was meticulosly skeletonized with blunt dissection of fat and fibrous tissue from both the front and the back. Only two structures were then clearly seen entering the gallbladder the cystic duct and the cystic artery. With the critical view of safety fully established the cystic duct was clipped twice proximally and once distally using the 10 mm Weck hemoclip applied under direct visualization and then sharply divided. The cystic artery was divided in the same fashion. The gallbladder was removed from the liver bed using electro cautery. The liver bed was then inspected for hemostasis and this was achieved. The abdomen was irrigated with sterile saline and inspection was made that showed the clips in good position. The specimen was removed using Endo-Catch. The abdomen was desufflated. The umbilical fascia was closed with 0 Vicryl in a [id number] fashion under direct visualization. Skin incisions were irrigated and closed with 4-0 Monocryl. 30 ml of 0.25% bupivacaine was infiltrated into the subcutaneous tissue of the incisions. The wounds were sealed with Dermabond. Patient emerged from anesthesia was extubated and transferred to recovery in stable condition. The sponge and instrument count at the end of the operation was correct. Complications: none Post-operative Disposition: same day surgery
--- NOTE | 2024-03-18 14:33 | P.CALLCOV_ITS ---
Call Coverage Note Note Date of Patient Contact: 03/18/24 Time of Patient Contact: 14:33 Narrative of Care Provided: Code stroke called for patient with R facial droop. She just had surgery (farhat sapp), was normal pre-op. Glucose 154 at bedside. Patient alert, follows commands, minor facial asymmetry but UE and LE strength and sensation are equal and unremarkable. NIH 1 at this time. Will obtain CT head / CT with contrast, await results and assess response. Suspect either relative hypoglycemia (history of uncontrolled DM) or anesthesia. If no improvement will recommend admission for TIA vs CVA and further evaluation with MRI. With recent surgery, low NIH pa tient is not a candidate for tnk administration.
[2024-03-18 14:59] LABS: Prothrombin Time 11.2 SECONDS (9.4-12.5)
[2024-03-18 15:01] LABS: Add Manual Diff / Slide Review NO; Basophils Absolute Auto 0 /uL (0-100); Basophils Percent Auto 0.4 % (0-2); Eosinophils Absolute Auto 100 /uL (0-450); Eosinophils Percent Auto 1.6 % (2-4); Hematocrit 38.6 % (36-46); Lymphocytes Absolute Auto 1700 /uL (1100-4500); Lymphocytes Percent Auto 33.3 % (25-40); Mean Corpuscular HGB Conc 33.7 % (30-36); Mean Corpuscular Hemoglobin 32.4 PG (26-34); Mean Corpuscular Volume 96.1 fL (80-100); Monocytes Absolute Auto 200 /uL (0-900); Monocytes Percent Auto 3.9 % (3-14); Neutrophils Absolute Auto 3100 /uL (1500-7000); Neutrophils Percent Auto 60.8 % (50-75); Platelet Count 190 X10^3/uL (150-400); Red Blood Cell Count 4.02 X10^6/uL (4.0-5.2); Red Cell Distribution Width 13.1 % (11.6-14.8); White Blood Cell Count 5.1 X10^3/uL (4.5-11.0)
[2024-03-18 15:02] LABS: PTT Partial Thromboplastin Tim 37 SECONDS (25.1-36.5)
[2024-03-18 15:07] LABS: Alanine Aminotransferase 58 IU/L (<35); Albumin 4.1 g/dL (3.5-5.0); Albumin Globulin Ratio 1.4 (1.0-2.8); Alkaline Phosphatase 51 U/L (38-126); Aspartate Aminotransferase 59 IU/L (14-36); BUN Creatinine Ratio 45.9 (6-22); Bilirubin Total 0.6 mg/dL (0.2-1.3); Blood Urea Nitrogen 17 mg/dL (7-17); Calcium 8.6 mg/dL (8.4-10.2); Carbon Dioxide 26 mmol/L (22-32); Chloride 108 mmol/L (98-107); Estimated Glomerular Filt Rate > 60 mL/min (>60); Glucose 182 mg/dL (70-100); HEMOLYSIS 30 (0-50); Magnesium 2.3 mg/dL (1.6-2.3); Potassium 4.2 mmol/L (3.4-5.1); Sodium 137 mmol/L (137-145); Total Protein 7.1 g/dL (6.3-8.2)
--- NOTE | 2024-03-18 15:30 | SUR.PHASEI ---
Dr Chatterjee to bedside. 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 Patient confirms. Code stroke cancelled by Dr Chatterjee. Dr Grier aware. Pt able to take sips of water without problems.
[2024-03-18] MEDS: ONDANSETRON 4 MG/2 ML INJ IV (15:52)
--- NOTE | 2024-03-18 17:11 | SUR.PHASEII ---
1420. Pt waking up from anesthesia. During SBAR handoff from Conor Choe patient noted to have right side droop, pt alert oriented to place. Dr Chatterjee to bedside. Pt with no change to sensation, strength to any extremities. 1422 Code stroke called. 1426 Dr Grier and anesth Dr Martinez to bedside. Pt CBG 157. NIH scale 1. 1428 Pt to radiology for stat CT scan with this RN on monitor. 1438. Pt back to PACU from Radiolody. NIH remains 1. Pt remains very sleepy from surgery. Awakens to voice, alert and oriented. Labs drawn, CTA pending labs.
--- NOTE | 2024-03-18 17:21 | SUR.PHASEII ---
1540 Pt to bedside. States patient looks completly normal to him and that she has this intermittent marin's palsey. 1545. Pt complained of nausea. See order from Dr Martinez after notified of pt nausea. 1615 Pt with 200mg emesis after sitting up to edge of bed to get dressed. LR bag #2 hung. Pt back to rest. 1700 Pt DC to home with after being able to get up, get dressed and no further emesis. Pt able to climb up in husbands large truck without problems.
== END 2024-03-18 17:00 | disposition home or self-care (01) ==
PROVIDERS: Internal Medicine; Referring Provider Surgery; Visit Provider Surgery
PROC: 0FT44ZZ Resection of Gallbladder, Percutaneous Endoscopic Approach (ICD-10-PCS; CPT 47562; principal; 2024-03-18 12:30)
DX: K80.10 Calculus of gallbladder with chronic cholecystitis without obstruction (principal)
CPT/HCPCS: 47562; 70450; 80053; 82962; 83735; 85025; 85610; 85730; J0690; J1100; J1170; J2250; J2405; J2704; J3010

== ENCOUNTER 2024-04-08 08:22 | Day surgery (SDC) | payer OTHER, SELFPAY ==
[2023-12-05 11:13] VITALS: BMI 24.7
[2024-04-08] VITALS (7 sets, daily range): BP systolic 91–146; BP diastolic 59–88; PULSE 63–86; RESP 14–16; TEMP 36.1–36.4; O2SAT 96–99
--- NOTE | 2024-04-08 | PATH_ITS ---
[facility] Accession Number: [id number] No. of containers..01 Tissue . 01 Material submitted: . sigmoid colon - SIGMOID COLON POLYPS . 01 Diagnosis: SIGMOID COLON POLYP: Benign hamartomatous polyp; please see comment. Negative for dysplasia or malignancy. MRV 04/13/2024 1254 Local . 01 Comment: Though often sporadic, hamartomatous polyps can be associated with several syndromes. Correlation with personal and family history to exclude this possibility may be contributory. . As part of routine coding quality coordinator, Dr. Moreno has reviewed this case and agrees with the diagnosis of benign hamartomatous polyp. . 01 Electronically signed: . Tian Fulton MD, PhD, Pathologist NPI- [id number] . 01 Gross description: . SIGMOID COLON POLYPS: Received in formalin is 1 fragment of casarez soft tissue measuring 1.3 x 1.3 x 1.3 cm. Specimen is sectioned and submitted in its entirety in 2 cassettes. /RYAN 04/11/2024 1924 Local . 01 Pathologist provided ICD-10: K63.5 . 01 CPT . 315765 Specimen Comment: A courtesy copy of this report has been sent to [phone] Performed at: [address] [facility] [address], [place], [place] [id number] MD Bryan Moreno MD Phone: [phone]
[2024-04-08] MEDS: LACTATED RINGERS 1,000 ML 42 ML IV (08:54)
--- NOTE | 2024-04-08 09:31 | PM.HP.1 ---
History of Present Illness History of Present Illness Date Patient Seen: 04/08/24 Time Patient Seen: 09:31 Chief complaint: Colonoscopy Narrative: 59-year-old woman history of Hansen's palsy with positive Cologuard test here for diagnostic colonoscopy. Last colonoscopy 5 years ago. No family history of colon cancer. No abdominal concerns today. [facility] Medical History Hansen's palsy Hyperlipidemia Hypertension Chronic GERD Type 2 diabetes mellitus Surgical History History of arthroscopy of right shoulder (05/28/23) History of appendectomy (12/05/23) Hx of surgical procedure History of hysterectomy Family History Mother Peptic ulcer Father Brain tumor Social History household members: spouse Smoking Status: Never smoker alcohol intake: never Meds Home Medications and Allergies Home Medications Medication Instructions Recorded Confirmed Type metformin 500 mg tablet,extended 1,000 mg PO BID ##0 12/11/11 04/08/24 History release 24 hr (Glucophage XR) multivitamin 1 tab PO QAM ##0 05/12/12 03/18/24 History esomeprazole magnesium 40 mg 20 mg PO QDAY PRN (Drug) Ingestion 09/13/16 04/08/24 History capsule,delayed release (Nexium) ##0 dulaglutide 0.75 mg/0.5 mL 0.75 mg SUBCUT WEEKLY 09/13/20 04/08/24 History subcutaneous pen injector (Trulicity) losartan 25 mg tablet 25 mg PO DAILY 09/13/20 04/08/24 History empagliflozin 10 mg tablet 10 mg PO DAILY 05/28/23 04/08/24 History (Jardiance) acetaminophen 325 mg capsule 650 mg (2 x 325 mg) PO QID PRN 03/18/24 04/08/24 Rx (Tylenol) pain #60 caps Allergies Allergy/AdvReac Type Severity Reaction Status Date / Time prednisone [PREDNISONE] Allergy Intermediate HIVES Verified 04/08/24 09:00 ibuprofen [IBUPROFEN] AdvReac Mild Gastrointestinal Verified 04/08/24 09:00 Upset Exam Vital Signs (past 8 hours): - 04/08/24 09:03 Temperature 97.6 F Pulse Rate 86 Respiratory Rate 16 Blood Pressure 146/88 H Pulse Oximetry 98 Oxygen Delivery Method Room Air Oxygen Delivery Method Room Air Narrative Exam Narrative: General adult woman alert oriented no acute distress Face-slight right facial droop Chest nonlabored respiration Extremities warm well perfused Assessment & Plan Assessment and plan (1) Positive colorectal cancer screening using Cologuard test: Status: Acute Assessment & Plan narrative: 59-year-old woman history of Hansen's palsy and a positive Cologuard test here for diagnostic colonoscopy. Technical details were discussed. Risks, benefits, alternatives explained. Risks including but not limited to myocardial infarction, aspiration, bleeding, pain, missed lesion, incomplete examination, need for further radiographic studies, intestinal injury, and need for major abdominal surgery were discussed. All questions were answered to their satisfaction, and they are in agreement with this plan.
--- NOTE | 2024-04-08 09:37 | P.OP.COLON_ITS ---
Operative Date/Time/Diagnoses Date of procedure: 04/08/24 Time of procedure: 09:37 Pre-op diagnosis: Positive Cologuard Procedure & Clinicians Study performed: Diagnostic colonoscopy Indications: Positive Cologuard Surgeon: Elliott Chatterjee Procedure Notes Procedure in detail: The history and physical was performed/updated and the patient is ASA class is 2. The procedure was discussed in detail with the patient. Potential risks complications including infection, bleeding, missed diagnosis, perforation, need for surgery, and were explained. Their questions were answered and informed consent was obtained. Patient was brought to the procedure room and placed standard monitoring equipment. The patient's vital signs were monitored continuously throughout the entire procedure. Prior to starting time-out was performed. The patient was placed in the left lateral recumbent position. Procedural sedation was administered by anesthesia. Examination began with a thorough inspection of the perianal area there was no evidence of fissures, fistulae, external hemorrhoids or cutaneous malignancy. The colonoscopy scope was then placed into the anal canal and was advanced to the cecum, which was identified by the ileocecal valve, the appendiceal orifice and the confluence of the taenia. The scope was then slowly withdrawn examining colon thoroughly in all directions, irrigating it of any residual stool. The scope was retroflexed within the rectum The patient tolerated the procedure well. They will be discharged once criteria are met. The prep was of good/excellent quality. The withdrawl time was 10 minutes. FINDINGS * Sigmoid polyp 20 cm from the verge 1.5 cm pedunculated. Removed with hot snare. Tattooed distal to the lesion. * Extensive diverticulosis throughout the colon. Specimen(s): other (Sigmoid polyp) Impression: Sigmoid polyp Post-procedure Recommendations: High fiber diet Plan for aftercare: Follow-up is dependent on pathology findings. Disposition: same day surgery
== END 2024-04-08 10:47 | disposition home or self-care (01) ==
PROVIDERS: Referring Provider Surgery; Visit Provider Surgery
PROC: 0DJD8ZZ Inspection of Lower Intestinal Tract, Via Natural or Artificial Opening Endoscopic (ICD-10-PCS; CPT 45378; principal; 2024-04-08 09:15)
DX: Z12.11 Encounter for screening for malignant neoplasm of colon (principal); R19.5 Other fecal abnormalities; K57.30 Diverticulosis of large intestine without perforation or abscess without bleeding; D12.5 Benign neoplasm of sigmoid colon
CPT/HCPCS: 45381; 45385; J2704

== ENCOUNTER → 2025-07-07 14:31 | Outpatient (CLI) | payer OTHER, SELFPAY ==
[2023-12-05 11:13] VITALS: BMI 24.7
[2025-07-07 15:38] LABS: Add Manual Diff / Slide Review NO; Hematocrit 38.3 % (36-46); Hemoglobin 13.0 g/dL (12.0-16.0); Lymphocytes Absolute Auto 1800 /uL (1100-4500); Mean Corpuscular HGB Conc 34.0 % (30-36); Mean Corpuscular Hemoglobin 32.3 PG (26-34); Mean Corpuscular Volume 94.9 fL (80-100); Platelet Count 185 X10^3/uL (150-400)
[2025-07-07 15:53] LABS: Hemoglobin A1C% w Est Avg Glu 7.3 % (4.0-6.0)
[2025-07-07 15:56] LABS: Albumin 4.2 g/dL (3.5-5.0); Blood Urea Nitrogen 18 mg/dL (7-17); Calcium 9.1 mg/dL (8.4-10.2); Carbon Dioxide 24 mmol/L (22-32); Chloride 104 mmol/L (98-107); Estimated Glomerular Filt Rate > 60 mL/min (>60); Glucose 124 mg/dL (70-99); HEMOLYSIS < 15 (0-50); Potassium 3.8 mmol/L (3.4-5.1); Sodium 137 mmol/L (137-145)
[2025-07-07 16:09] LABS: Prealbumin 26.2 mg/dL (17.6-36.0)
[2025-07-07 16:20] LABS: Vitamin D 25 Hydroxy (D3) 38.8 ng/mL (30.0-100.0)
== END ==
PROVIDERS: Referring Provider Orthopaedic Surgery; Visit Provider Orthopaedic Surgery
DX: Z01.818 Encounter for other preprocedural examination (principal)
CPT/HCPCS: 36415; 80048; 82040; 82306; 83036; 84134; 85025

== ENCOUNTER 2025-07-14 06:00 | Day surgery (SDC) | payer OTHER, SELFPAY ==
[2023-12-05 11:13] VITALS: BMI 24.7
[2025-07-11 13:39] VITALS: BMI 25.0
--- NOTE | 2025-07-14 | PATH_ITS ---
[facility] Accession Number: [id number] No. of containers..02 Tissue . 01 Material submitted: . PART A: finger - RIGHT HAND MIDDLE FINGER MASS (RADIAL) PART B: finger - RIGHT HAND MIDDLE FINGER MASS (DORSAL) . 01 Diagnosis: A. 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 Negative for malignancy. . B. 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 Negative for malignancy. MRV 07/21/2025 1755 Local . 01 Comment: As part of ongoing director supplier quality, this case is also reviewed by Dr. Cynthia Gu, who agrees with the interpretation. . 01 Electronically signed: . Alecia Small MD, Pathologist NPI- [id number] . 01 Gross description: . Received are two formalin-filled containers both labeled with the patient's name. . A. In a container labeled right hand middle finger mass radial. The specimen consists of a light yellow-lerner to lerner-casarez piece of soft tissue which measures 0.9 x 0.8 x 0.4 cm. Inked, trisected, and totally submitted in cassette A1. B. In a container labeled right hand middle finger mass dorsal. The specimen consists of a light lerner-casarez piece of soft tissue which measures 0.7 x 0.6 x 0.4 cm. The specimen is inked, bisected, and entirely submitted in cassette B1. ([id number]) /JOYA 07/20/2025 0649 Local . 01 Pathologist provided ICD-10: R22.30 . 01 CPT . 753624, [id number] Specimen Comment: A courtesy copy of this report has been sent to Pathology Performed at: [address] [facility] [address] [address] [address] [facility], [place], [place] [id number] MD Bryan Moreno MD Phone: [phone]
[2025-07-14 07:07] VITALS: BMI 25.0
[2025-07-14 07:12] VITALS: BP 140/76; PULSE 63; RESP 16; TEMP 36.4; O2SAT 100
[2025-07-14] MEDS: LACTATED RINGERS 1,000 ML 42 ML IV (07:18)
--- NOTE | 2025-07-14 07:21 | SUR.PREOP ---
Pt reports taking tylenol a month ago, and had right side face numbness, unsure of duration. Was taking tylenol for body hurting, did not seek medical attention, eventually it was normal. Held ordered dose of tylenol to d/w Dr Martinez, who states ok to hold tylenol at this time.
--- NOTE | 2025-07-14 07:34 | PM.PREOP ---
Pre-operative Note Interval Note History & Physical reviewed/Exam performed by Physician: Yes Changes to H&P: No
--- NOTE | 2025-07-14 08:15 | SUR.OPER ---
Supine on padded OR bed, head on pillow, left arm secured on padded arm board at <90 degrees abduction, legs uncrossed, safety belt at thigh, tape over blanket over lower legs. right arm prepped into field
[2025-07-14 09:36] VITALS: BP 128/69; PULSE 82; RESP 12; TEMP 36.4; O2SAT 97
[2025-07-14 09:40] VITALS: BP 134/67; PULSE 79; RESP 10; O2SAT 95
--- NOTE | 2025-07-14 09:40 | P.OP_ITS ---
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 ?This operation could not have been safely performed (without compromising the technical results or length of the procedure) without the assistance of a skilled surgical dressing maker. A surgical dressing maker was medically necessary for room set up, patient positioning, draping, retraction, visualization, reduction, fixation and closure. ?They were essential ?for the success of the case. Anesthesia: General EBL: 15 ml Tourniquet: 75 minutes @ 250 mmHg Indication For Surgery: Patient presented with triggering and pain of the affected digits. Conservative treatment did not improve symptoms to an accepta ble level. The risks, benefits, and alternatives were discussed. Risks include pain, bleeding, infection, damage to nearby structures, tendon damage, nerve damage, blood vessel damage, wound healing complications, lack of symptom relief, need for further surgery, DVT, PE, stroke, and . Written consent was obtained. Operative Findings: Right index finger Mucous Cyst originating off the DIP j oint. DIP joint Osteophytes. Right middle finger masses both on the dorsum and radial volar aspect of the D IP joint. Partial extensor tendon injury Procedure in Detail: The patient was met in the pre-operative hold area. Consent was verified and operative extremity was signed. The patient then met with anesthesia and was brought back to the operating room. The patient was placed supine on the operating table. Anesthetic was administered. The extremity was then prepped and draped in the usual sterile fashion. A timeout was performed per protocol. All were in agreement and we proceeded. A T incision was made at the level of the DIP joint overlying the right middle finger digit. The longitudinal incision which cheated slightly volar because of the 2nd mass that was on the volar radial aspect of the finger. Full thickness flaps were made and retracted. We started with the volar cyst. This was easily dissected out. It had a yellowish brown tint and there was no stalk identified that was associated with the D IP joint. The dorsal cyst and the extensor tendon was identified. The cyst was then bluntly dissected out. The cyst also had a yellowish-brown tent. It was not associated with the tendon and there was no stalk that was associated with the joint. This was then placed in a specimen cup and sent to pathology. The collateral ligaments were identified and protected. The capsule between the extensor tendon and collateral ligaments was excised exposing the joint. The extensor tendon was attaching directly to the osteophytes. The osteophytes were identified with direct visualization and fluoroscopy. The osteophytes were removed with a rongeur in the process less than 50% of the extensor tendon was disrupted from the attachment of P3. It was decided that we would perform an an extensor tendon repair with stitching into the periosteum distally and also a [id number] repair with the remaining extensor tendon. The joint remained stable at the end of the case. The wound was irrigated copiously and closed with nylon sutures. A sterile dressing and splint was applied. A T incision was made at the level of the DIP joint overlying the affected digit. Full thickness flaps were made and retracted. The cyst and the extensor tendon was identified. The cyst was then bluntly dissected out. The collateral ligaments were identified and protected. The capsule between the extensor tendon and collateral ligaments was excised exposing the joint. The osteophytes were identified with direct visualization and fluoroscopy. The osteophytes were removed with a rongeur. The joint remained stable and the extensor tendon was intact at the end of the case. The wound was irrigated copiously and closed with nylon sutures. A sterile dressing and splint was applied. Postoperative Protocol: Same day discharge Finger Splint in place Splint to stay in place until follow up appointment Sutures out at 2 weeks Manual labor at 4-6 weeks Kimo Nazario MD Closure Type: primary Specimen(s): other Prosthetic devices, grafts, tissues, transplants, or devices: Two Applied: other Estimated Blood Loss (mL): 15 Tourniquet time (min): 75 Complications: other (The right middle finger extensor tendon inserted on the large dorsal osteophyte. In removal of the dorsal osteophyte there was a partial disruption of the extensor tendon at its insertion. It was less than 50% of the extensor tendon however it was decided to repair the extensor tendon and she will) Post-operative Condition: stable Disposition: PACU
[2025-07-14 09:45] VITALS: BP 134/67; PULSE 76; RESP 9; O2SAT 95
[2025-07-14 09:50] VITALS: BP 138/63; PULSE 76; RESP 9; O2SAT 95
[2025-07-14 09:55] VITALS: BP 123/59; PULSE 73; RESP 10; O2SAT 96
[2025-07-14] MEDS: ONDANSETRON 4 MG/2 ML INJ IV ×2 (10:26→10:47)
--- NOTE | 2025-07-14 10:31 | SUR.PHASEII ---
Pt vomited 200cc of bilious yellow fluid @ 1025 after drinking mariana dimitri; given 4 mg IV ondansetron. Pt currently resting, awaiting effect of ondansetron
--- NOTE | 2025-07-14 10:38 | SUR.PHASEII ---
Pt again drank mariana dimitri rapidly and immediately vomited another 200cc of bilious yellow fluid. Checked BG; 204; pt to take her metformin when she arrives home. Also given saltine crackers to nibble. Advised her to monitor her fluid intake as she has been rapidly gulping which seems to trigger her emesis.
--- NOTE | 2025-07-14 11:03 | SUR.PHASEII ---
After 2nd dose ondansetron, pt states she feels well enough to d/c home; pt taken by RN in w/c to car, she did hold emesis bag to face during trip to car but no further emesis noted. Assisted into front seat, pt or will call if nausea returns and does not alleviate with PO meds. Pt also advised to not gulp fluids as this will re-trigger her nausea. She verbalized understanding.
== END 2025-07-14 11:00 | disposition home or self-care (01) ==
PROVIDERS: Referring Provider Orthopaedic Surgery; Visit Provider Orthopaedic Surgery
PROC: (CPT 26236; principal; 2025-07-14 07:45)
DX: M25.841 Other specified joint disorders, right hand (principal); M19.041 Primary osteoarthritis, right hand
CPT/HCPCS: 26236 ×3; 82962; J0689; J2405; J2704; J3010; J7120